=== PATIENT | male | born 1930 | race Caucasian/White ===

== ENCOUNTER 2016-10-14 20:04 | Inpatient (IN) | payer MEDICARE ==
[~2016-10-14] VITALS: Ht 172.7 cm; Wt 132.2 kg
[~2016-10-14 20:04] MED LIST: ASPI-973 PO; CLOP75TA3 PO; FURO40TA4 PO; Isosorbide Mononitrate PO; LIP40 PO; LISI-571 PO; Metoprolol Tartrate PO; OMEP-113 PO; POTA10CA42 PO; [UNRECOGNIZED DRUG - CODE] IV
[2016-10-14 20:11] VITALS: BP 110/61; PULSE 70; RESP 18; O2SAT 92
--- NOTE | 2016-10-14 21:15 | DRSVH ---
PROCEDURE: X-RAY LEFT KNEE, THREE VIEWS ([id number]) INDICATIONS: Swollen left knee, patient reports no recent trauma but he did lacerated his knee appro ximately 1 week ago and believes there could be infection associated. TECHNIQUE: 3 views of the knee were acquired. COMPARISON: None. FINDINGS: Bones: No fractures or dislocations. No suspicious bony lesions. Soft tissues: No joint effusion. No suspicious soft tissue calcifications. Soft tissue swelling ve ntrally. IMPRESSION: Bipartite patella, no osteomyelitis or foreign body seen. Swelling in the soft tissues ventral to the patella but no gas in those soft tissues is found. Dictated by: Pa Madrigal M.D. on 10/14/2016 at 21:12 Approved by: Pa Madrigal M.D. on 10/14/2016 at 21:13
--- NOTE | 2016-10-14 21:40 | ED.REPORT ---
HPI-Rash / Abscess Date of Service Oct 14, 2016 ED Provider: Lawrence Vaughn MD Patient is a 85 year old male with a history of diabetes mellitus, coronary artery disease with prior NSTEMI and CABG, sleep apnea on CPAP, prior CVA, and hypertension who presents to the ED with increasing swelling, redness, and warmth of his left knee that began 4 days ago. He reports associated tenderness of his knee. The patient states that he stepped on something last week, injuring the sole of his left foot, and that he subsequently developed purulent discharge from this wound. He did not sustain any recent trauma or injury to his knee. The patient has also reports chills and fever, with a temperature of 37.8C in the ED. He denies chest pain or shortness of breath. Nursing Notes Stated Complaint: SWOLLEN LT KNEE Chief Complaint: General Complaint Nursing Notes Reviewed: Yes Allergies: Coded Allergies: No Known Allergies (Verified , 10/14/16) Scheduled ([Metoprolol Tartrate]) 25 MG TABLET 25 MG PO BID ([Isosorbide Mononitrate]) 30 MG TABLET.ER 30 MG PO DAILY Aspirin (Aspirin) 81 Mg Tablet.dr 81 MG PO DAILY Atorvastatin (Lipitor) 40 Mg Tablet 80 MG PO DAILY Clopidogrel Bisulfate (Plavix) 75 Mg Tablet 75 MG PO DAILY Fluoxetine (Fluoxetine) 10 Mg Capsule 10 MG PO DAILY Furosemide (Furosemide) 40 Mg Tablet 40 MG PO DAILY Lisinopril (Lisinopril) 5 Mg Tablet 5 MG PO DAILY Omeprazole Magnesium (Omeprazole) 20 Mg Capsule.dr 20 MG PO DAILY Potassium Chloride (Potassium Chloride) 10 Meq Capsule.er 10 MEQ PO DAILY TAKE WITH FOOD Scheduled PRN Vancomycin (Vancomycin HCl) 1 Gm Addvial 1 GM IV DIRECTED PRN PRN Catheter associated UTI General Time Seen by MD: 21:35 Chief Complaint Red area, Tender/swollen area Hx Obtained From: Patient, Spouse Arrived By: Walk-in Onset Occurred: 4 days ago Symptom Duration: Since onset Location: : Lower extremity Quality: Painful Severity: Current: Moderate Severity: Maximum: Moderate Recent Healthcare: No recent doctor visit, No recent hospitalization Similar Sx Previous: No Past Medical History Past Medical History Coronary artery disease with prior NSTEMI and CABG Asthma prostate cancer possible CHF GERD Reports: Diabetes mellitus, Hyperlipidemia, Hypertension, Stroke (prior CVA) Past Surgical History hernia repair Reports: Appendectomy Smoking History Never Smoker Social History Alcohol Use: Denies alcohol use Drug Use: Denies drug use Other Social History: Good social support, , Local resident Review of Systems Constitutional: Reports: Chills, Fever Respiratory: Denies: Shortness of breath Cardiovascular: Denies: Chest pain Musculoskeletal: Reports: Extremity pain, Extremity swelling, Joint pain, Joint swelling Complete sys rev & neg: except as marked. Physical Exam Initial Vital Signs Vital Signs (First) Date Time Temp Pulse Resp B/P Pulse Ox O2 Delivery O2 Flow Rate FiO2 10/14/16 20:11 37.8 70 18 110/61 92 Room Air 10/14/16 23:38 2 Initial VS: Reviewed, Vital signs abnormal Neck: Supple, Full range of motion Neurologic: Alert, Oriented, Nonfocal Psychiatric: Mood/affect normal, Behavior normal, Normal thought content General/Constitutional: Awake, Alert, No acute distress Appearance / Presentation: Positive: Obese Skin: Color NL, Warm, Dry Head / Eyes: Atraumatic, Normocephalic, PERRL ENT: Airway patent, Mucous membranes moist Respiratory / Chest: Breath sounds NL, Breath sounds = bilat, No respiratory distress, No rales, No rhonchi, No wheezing Cardiovascular: Heart rate NL, Regular rhythm, Heart sounds NL, No murmurs Upper Extremity / MS: No swelling, Neurologic intact, Vascular intact Lower Extremity / Pelvis / MS: Neurologic intact, Vascular intact left knee is tender, swollen, hot, and erythematous. Leading edge marked. Small healing pustule on the arch of sole of the his left foot, no surrounding erythema or warmth. Interpretation & Diagnostics Lab Results Interpretation Result Diagram: 10/14/16213710/14/162137 Test 10/14/16 21:38 White Blood Count 10.1th/mm3 (3.8-10.1) Red Blood Count 4.56mil/mm3 (4.40-5.80) Hemoglobin 13.1g/dL (13.8-17.2) Hematocrit 42.2% (41.0-50.0) Mean Corpuscular Volume 92.5fL (81-100) Mean Corpuscular Hemoglobin 28.7pg (27.0-35.0) Mean Corpuscular Hemoglobin Concent 31.0% (32.0-37.0) Red Cell Distribution Width 13.7% (12.3-15.4) Platelet Count 220bil/L (150-400) Neutrophils (%) (Auto) 71.8% (40-74) Lymphocytes (%) (Auto) 14.9% (14-46) Monocytes (%) (Auto) 10.3% (4-12) Eosinophils (%) (Auto) 2.6% (0-5) Basophils (%) (Auto) 0.2% (0-3) Sodium Level 140mEq/L (134-144) Potassium Level 5.0mEq/L (3.5-5.2) Chloride Level 98mEq/L (97-108) Carbon Dioxide Level 28mmol/L (18-29) Blood Urea Nitrogen 22mg/dL (8-27) Creatinine 0.76mg/dL (0.76-1.27) Estimat Glomerular Filtration Rate 103mL/min (>59) Glucose Level 137mg/dL (60-99) Calcium Level 8.7mg/dL (8.5-10.1) Magnesium Level 1.8mg/dL (1.6-2.6) Total Bilirubin 0.5mg/dL (0.0-1.2) Aspartate Amino Transf (AST/SGOT) 17U/L (0-50) Alanine Aminotransferase (ALT/SGPT) 11U/L (0-44) Alkaline Phosphatase 88U/L (25-160) Total Protein 7.1g/dL (6.4-8.4) Albumin 3.6g/dL (3.4-5.0) Procalcitonin 0.05ng/mL (0.00-0.08) Lab Results Interpretation: Elevated lactic acid ECG Interpretation ECG Interpretation: Sinus or etctopic atrial rhythm, Rate 63 Supraventricular bigeminy Right bundle branch block Abnormal T, consider, ischemia, lateral leads Time: 22:58 Interpreted by: ED physician Normal ECG Interpretation: No acute ischemic changes X-Ray Chest Interpretation Chest Xray Interpretation: Impression: No acute cardiopulmonary process. View: Portable Interpretation / Wet Read by: Wet read ED physician X-Ray Interpretation Xray Interpretation: IMPRESSION: Bipartite patella, no osteomyelitis or foreign body seen. Swelling in the soft tissues ventral to the patella but no gas in those soft tissues is found Dictated by: Pa Madrigal M.D. on 10/14/2016 at 21:12 Approved by: Pa Madrigal M.D. on 10/14/2016 at 21:13 X-Ray Ordered: Knee left Interpretation / Wet Read by: Interpret - Radiologist Re-Eval/Medical Decision Med Decision/Clinical Course Left leg cellulitis with evidence of systemic sepsis symptoms. He was cultured and given vancomycin. He also had a mildly elevated d-dimer with normal EKG. He did not have any chest pain. He will be admitted to the hospitalist service. Source of Hx: Old records Re-Evaluation/Progress : Time of Eval: 23:48 Patient Status: Condition improved Re-Evaluation/Progress Note: Rechecked the patient. Discussed the results of his labs, x-rays, and EKG. Patient will be admitted to the hospital for further care. All questions were addressed. Consultation : Referral / Consult Name: Margarita Cueto DO Consulted With: Hospitalist Call Returned at: 23:52 Group Cio: Will see patient, Agrees with eval, Agrees with plan, Accepts admit Note: Spoke with Dr. Cueto, hospitalist, who agrees to accept admit. Counseled Regarding: Diagnosis, Lab results, Need for admission Discharge & Departure Impression: Primary Impression: Cellulitis of left knee Additional Impressions: Elevated troponin SIRS (systemic inflammatory response syndrome) Disposition: ADMITTED TO HOSPITAL Discharge Condition All VS Reviewed: Yes Condition: Stable Referrals: Murali Bowen MD (PCP) Yaneth Attestation Portions of this note were transcribed by Darlene Munguia. I, Dr. Vaughn personally performed the history, physical exam and medical decision-making; I reviewed and confirmed the accuracy of the information in the transcribed note. Signed by: Yaneth Lacey, 10/15/2016 0000 copies to: Murali Bowen MD, Howard L MD Oct 14, 2016 21:40 Darlene Munguia Oct 14, 2016 21:53
[2016-10-14 21:45] LABS: BASOPHILS % (AUTO) 0.2 % (0-3); EOSINOPHILS % (AUTO) 2.6 % (0-5); MONOCYTES % (AUTO) 10.3 % (4-12); Mean Corpuscular Hemoglobin 28.7 pg (27.0-35.0); Mean Corpuscular Volume 92.5 fL (81-100); NEUTROPHILS % (AUTO) 71.8 % (40-74); Platelet Count 220 bil/L (150-400)
[2016-10-14] MEDS ORDERED: Vancomycin Inj 1,500 MG in 0.9% Sodium Chloride 500 ML IV ONE (22:00)
[2016-10-14 22:07] LABS: TROPONIN T 0.014 ug/L (0.0-0.011)
[2016-10-14 22:18] LABS: Magnesium 1.8 mg/dL (1.6-2.6)
[2016-10-14 22:36] VITALS: BP 125/51; PULSE 67; RESP 23; O2SAT 94
[2016-10-14 23:38] VITALS: BP 97/41; PULSE 66; RESP 21; O2SAT 92
[2016-10-15] VITALS (10 sets, daily range): BP systolic 98–139; BP diastolic 39–63; PULSE 57–72; RESP 17–22; O2SAT 91–96
[2016-10-15] MEDS ORDERED: Alum-Mag Hydrox-Simeth 30 mL Suspension PO PRN (01:20)
[2016-10-15] MEDS ORDERED: Polyethylene Glycol (PEG) 17 Gm Powder PO PRN (01:20)
[2016-10-15] MEDS ORDERED: Ondansetron 2 mg/mL 2 mL Inj IVPUSH PRN (01:20)
[2016-10-15] MEDS ORDERED: Piperacillin-Tazo 3.375 Gm Inj 3.375 GM in Dextrose 5% Minibag Plus 50 ML IV ONE (01:20)
[2016-10-15] MEDS ORDERED: FLUO10CA20 PO (02:39)
--- NOTE | 2016-10-15 06:17 | PCM.HPMED ---
Subjective Date of Service Oct 15, 2016 Primary Provider: Admitting Physician: Margarita Cueto DO Primary Care Physician: Murali Bowen MD Attending Physician: Margarita Cueto DO Chief Complaint: Left knee swelling and pain History of Present Illness: Patient is an 85-year-old male with type 2 diabetes mellitus, CAD s/p CABG, prior CVA with residual left lower extremity weakness presenting with left lower extremity swelling and erythema. The patient is a vague historian. He is accompanied by his family at bedside at time of visit. The patient reports initially noticing a small "split skin" on his left about 2 weeks ago. Patient does not recall any precipitating event or trauma to his knee. There was no associated drainage or bleeding from the site and he states the knee subsequently became more swollen and red but he refused medical care. Today (10/14) the patient noticed his knee was more red, swollen and warm. Patient's eventually convinced him to go to the ED for further evaluation. At time of visit, the patient reports his pain is one out of 10 on the pain scale. Patient denies fever, chills, nausea, emesis, chest pain, shortness of breath. In the ED, vitals: temp 37.8, HR 70, RR 18 - satting 92% on room air, BP 110/ 61. Notable labs: lactic acid 2.4 Review of Systems: A comprehensive review of systems was conducted with the patient and found to be negative except as above in the History of Present Illness. Allergies Coded Allergies: No Known Allergies (Verified , 10/14/16) Home Medications Metoprolol 25mg BID Isosorbide Mononitrate ER 30mg daily Plavix 75mg daily KCl ER 10mEq daily Omeprazole 20mg daily Fluoxetine 10mg daily Lasix 40mg daily Lisinopril 5mg daily Atorvastatin 80mg daily ASA 81mg daily PMH Type 2 diabetes mellitus CAD s/p CABG MARIBELL History of CVA with residual left lower extremity weakness and imbalance Hypertension GERD . Surgical History Hernia repair Appendectomy CABG Cataracts . 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 Mumbled and garbled speech. HEENT: Normocephalic, atraumatic. External ears without defect. Pupils equal, round, and reactive to light. Excessive lacrimation (left > right). Oropharynx free of erythema and cobble stoning with moist mucosa. Neck: Supple. No lymphadenopathy or thyromegaly. Cardiovascular: Distant heart sounds. Regular rate and rhythm with occasional ectopy. Soft systolic murmur. Pulmonary: Clear to auscultation bilaterally with no crackles, wheezes, or rhonchi. Normal respiratory effort with no use of accessory muscles. Speaks in 4 -5 words sentences. Abdomen: Bowel tones present. Soft, nontender, nondistended. Extremities: Left knee with erythema, warmth and swelling. Area of erythema is demarcated. Skin: Vesicular rash on flanks bilaterally. Upper extremity with multiple scabbed pustules. Neurological: Cranial nerves grossly intact. Psychiatric: Normal mood and affect. Alert and oriented to person, place, and time. Lab and Diagnostics Result Diagram: 10/14/16213710/14/162137 X-Rays, CTs and MRIs Date of Service: 10/14/162019 PROCEDURE: X-RAY LEFT KNEE, THREE VIEWS ([id number]) INDICATIONS: Swollen left knee, patient reports no recent trauma but he did lacerated his knee approximately 1 week ago and believes there could be infection associated. TECHNIQUE: 3 views of the knee were acquired. COMPARISON: None. FINDINGS: Bones: No fractures or dislocations. No suspicious bony lesions. Soft tissues: No joint effusion. No suspicious soft tissue calcifications. Soft tissue swelling ventrally. IMPRESSION: Bipartite patella, no osteomyelitis or foreign body seen. Swelling in the soft tissues ventral to the patella but no gas in those soft tissues is found. Dictated by: Pa Madrigal M.D. on 10/14/2016 at 21:12 Approved by: Pa Madrigal M.D. on 10/14/2016 at 21:13 Assessment & Plan Patient is an 85-year-old male with type 2 diabetes mellitus, CAD s/p CABG, prior CVA with residual left lower extremity weakness presenting with left lower extremity swelling and erythema and admitted for cellulitis. 1. Acute left knee cellulitis. Present on admission. Active -Left knee with erythema and swelling, possibly from strep -Knee x-ray shows swelling in the soft tissues ventral to the patella but no gas in those soft tissues is found -Antibiotics Zosyn and vancomycin. De-escalate with further lab results and cultures -Pending studies: MRSA screen, ASO titer, streptozyme 2. Vesicular rash. Present on admission. Active -Located on flank bilaterally -Possibly disseminated zoster -Contact isolation -VZV PCR pending -Consider acyclovir and ID consult 3. CAD s/p CABG. Present on admission. Active -Continue home atorvastatin, Plavix, ASA, metoprolol 4. Type 2 diabetes mellitus, chronic. Present on admission. Active -No home antiglycemic agents -HbA1c pending 5. MARIBELL, chronic. Present on admission. Active -Has CPAP at home but hasn't used in about one month 6. Hypertension, chronic. Present on admission. -Continue metoprolol, lisinopril, Lasix 7. GERD, chronic. Present on admission. -Continue home PPI 8. History of CVA -Continue ASA, Plavix Patient Status: Patient is admitted under inpatient status with expected length of stay greater than 2 midnights due to severity of presenting symptoms, risk of adverse event, and complexity of treatment plan. VTE Prophylaxis: Sub-Q Heparin (Unfractionated) Resuscitation Status: DNR/DNI:Do Not Resuscitate/Intubate Attending Statement The patient was seen and examined together with house staff on 10/15/2016 and I agree with the history, exam and plan as outlined in the note above. Ivan Michele DO Oct 15, 2016 01:26 Margarita Cueto DO Oct 15, 2016 06:34
--- NOTE | 2016-10-15 06:27 | NUR ---
ADMIT Patient presents with mumbled speech, oriented and appropriate in response. Denies pain. History of MARIBELL with CPAP at home that patient reports he does not wear. Placed on [employer] as he clearly has apneic episodes while sleeping. Somewhat confused when waking, clears after re-orientation. L knee red and swollen. Noted Left eye with yellow discharge and reddened, MD made aware. Placed on contact precautions. Currently resting comfortably in bed.
[2016-10-15] MEDS ORDERED: OMEP20TA24 PO (07:36)
[2016-10-15] MEDS ORDERED: OMEP20CA11 PO (07:46)
--- NOTE | 2016-10-15 07:47 | NUR ---
Med Rec: Med rec completed from medication bottles provided by family member, family member stated would take bottles home with her.
[2016-10-15] MEDS ORDERED: Vancomycin Dose per Pharmacist XX ONE (08:30)
[2016-10-15] MEDS ORDERED: Vancomycin Dose per Pharmacist XX SCH (08:30)
--- NOTE | 2016-10-15 08:59 | DRSVH ---
PROCEDURE: X-RAY CHEST ONE VIEW, PORTABLE ([id number]) INDICATIONS: chest pain TECHNIQUE: One view of the chest was acquired. COMPARISON: [facility], , CHEST 1VW (PORTABLE), 01/04/2015, 11:10. FINDINGS: Surgical changes and devices: Post median sternotomy and fractured proximal sternal wire redemonstrat ed. Lungs and pleura: No pleural effusions or pneumothorax. Lungs are clear. Mediastinum: Mediastinal contours appear normal. Heart size is normal. Bones and chest wall: No suspicious bony lesions. Overlying soft tissues appear unremarkable. IMPRESSION: No acute cardiopulmonary disease. Dictated by: Luis Jordan Burt Interpreted: Mary Stanford MD on 10/15/2016 at 8:59 Transcribed by: CHAVEZ on 10/15/2016 at 8:59 Approved by: Mary Stanford M.D. on 10/15/2016 at 19:02
--- NOTE | 2016-10-15 10:51 | NUR ---
Evaluation completed. Please go to "Notes" then click on "Assessments and Notes" (bottom left corner of screen). Then select appropriate discipline tab on top of screen.
[2016-10-15] MEDS: 0.9% Sodium Chloride 1,000 ML IV SCH ×2 (11:12→23:08)
[2016-10-15] MEDS: Heparin 5,000 Unit/mL Inj SUBQ SCH ×3 (11:13→23:50)
[2016-10-15] MEDS: Pantoprazole 40 mg ER24 Tablet PO SCH (11:14)
[2016-10-15] MEDS: Isosorbide Mononitrate 30 mg ER24 Tablet PO SCH (11:14)
[2016-10-15] MEDS: Piper-Tazo 3.375 Gm/50 mL D5W Minibag Plus - Q8H over 4 hrs IV SCH ×4 (11:22→18:13)
--- NOTE | 2016-10-15 13:26 | PCM.CONPHA ---
Subjective Left knee swelling and pain Reason for Pharmacy Consult: Vancomycin Dosing Assessment/Plan Assessment/Plan Pharmacy Kinetic Dosing Vancomycin Indication: SIRS, left knee cellulitis Vanc goal trough: 10-15 mcg/mL Pt wt: 120.7 kg Other ABX: Zosyn (DM2 hx) SCr: 0.76 WBC: 10.1 Cultures: blood pending Assessment/Plan: - Loading dose of vancomycin 1,500 mg given in ED -Will schedule vancomycin 1250 mg Q12H based on ~ 10 mg/kg. -Will schedule trough to be drawn on 10/17/16 @1300. Pharmacy appreciates consult and will continue to monitor. Thanks, Ede Nguyen, PharmD Ede Nguyen Oct 15, 2016 13:26
[2016-10-15] MEDS ORDERED: Vancomycin Inj 1,250 MG in 0.9% Sodium Chloride 250 ML IV SCH (13:30)
--- NOTE | 2016-10-15 15:25 | NUR ---
spiritual care: pt request caring visit. pt's Joan, vietnamese speaking awaiting news, apprehensive as she is worried about pt's condition and not understanding everything. pt sleeping.
--- NOTE | 2016-10-15 18:28 | NUR ---
Mentation/02 Assumed care of pt at 0930 this morning. Pt drowsy, frequently falling asleep in middle of a sentence. CPOX in place, pt on 2L via NC. Pt tends to desat in middle of eating/drinking. On puree/NTL, enc to take breaks to prevent desat. Later in shift, pt awake and talking, making jokes and teasing staff. Per family in room, pt confused. He was unsure of AM vs PM, req breakfast for dinner, etc. Pt does not remember a family member visiting earlier today. Currently resting, visiting with family.
--- NOTE | 2016-10-15 20:27 | CONS ---
[address] [address] CONSULTATION REPORT PATIENT: REGGIE ESPINOZA : 1930 MR#: [id number] ADMIT: 10/15/2016 JOB ID: [id number] DATE OF SERVICE: 10/15/2016 INFECTIOUS DISEASE CONSULTATION: I thank Dr. Oro for this timely consult. REASON FOR CONSULTATION: Left lower extremity cellulitis with possible disseminated zoster. 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 He has underlying problems including type 2 diabetes, coronary artery disease, and a history of CVA with some left-sided weakness. Despite that, he says he is able to get around a fair amount and he is definitely able to walk with a walker at home. He reports that he got a small cut or split just over his left knee a couple weeks ago. He thinks maybe that he had bumped it or there was some minor trauma to the knee. In any event the knee gradually started to swell and about a week ago it became quite red and tender. It started to feel warm to the patient and his strongly recommended he come to the ER, but the patient kept declining. Finally his talked him into it because his knee was really becoming more progressively swollen, tender, and very red. He did not have much in the way of symptoms associated with this, and states he was even able to continue to walk, though with a little bit more difficulty, and he did not have any fevers, chills, sweats, nausea, vomiting, diarrhea, or new onset pulmonary symptoms. In the ED he was found to have a low-grade fever, with a minimally elevated lactic acidosis. Because of that the patient was admitted for the treatment of what appeared to be a fairly severe left lower extremity cellulitis centered around the knee. There were also concerns that he had some vesicular lesions scattered across his abdomen and flanks bilaterally, and that this could represent zoster. The patient really does not know anything about the history the rash but his stepson who was in the room with him tonight says that he has had numerous of these red bumps come up on his arms and torso and that they were really at their worst about six weeks ago and have actually faded quite a bit. PAST MEDICAL HISTORY: 1. Type 2 diabetes. 2. History of CVA with residual left-sided weakness. 3. Coronary artery disease status post CABG. 4. Obstructive sleep apnea. 5. Hypertension. 6. Cataracts. 7. History of appendectomy. SOCIAL HISTORY: The patient is a former plant pathologies. 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 He is now retired in this area with his . He is a nonsmoker, nondrinker, and has not lived overseas, nor did he when he served in the [employer] , nor did he have any overseas travel at any time. FAMILY HISTORY: Positive for an absence of tuberculosis. His mother from an intracranial hemorrhage. His father from cardiac disease. REVIEW OF SYSTEMS: Was done. The patient is a bit of a vague historian but he was clear on some details and tells me he has not had any significant headache. He notes his vision has diminished over the years but it is not acutely worse. He has no sore throat or trouble swallowing. He denies significant cough, shortness of breath or chest pain. He has had no particular new or different problems with his back. He has noted the scattered skin lesions that have been of concern but that did not bother him much. These skin lesions are not itchy and not tender and they seem to come and go. He has had no nausea vomiting or diarrhea. No dysuria or other urinary symptoms. He has some chronic weakness in his left leg secondary to his old stroke and over the past week or two he has had a rapidly progressing redness and tenderness over the left knee. He states his legs are still strong, even though he does require a walker to get around because he has some balance issues at times. The remainder of the review of systems is negative. PHYSICAL EXAMINATION: Reveals an afebrile gentleman, temperature 36.9, pulse 72, respiratory rate 22, blood pressure 100/48. He is saturating 92% on 2 L. Examination of the head reveals no acute trauma. His eyes are notable for bilateral hemorrhagic conjunctivitis. No scleral icterus is seen. Nose is normal. Oral cavity with fair dentition. No thrush or hairy leukoplakia noted. No evidence for pharyngitis. The neck is quite supple, without adenopathy or notable JVD. With the stepson's help we were able to get the patient sitting up. His entire back is erythematous because he has been lying in 1 position and perhaps sweating a bit but I do not see any focal lesions consistent with zoster. His back is nontender down the spine. His lungs are fairly clear bilaterally. Cardiac tones regular rate and rhythm. No notable murmurs. The abdomen is obese, soft, and nontender. The patient is not does not have a Vasquez catheter. There is no suprapubic fullness. There are some scattered erythematous blanchable lesions on his upper extremities as well as scattered around his flank, but these are not vesicular and do not have the appearance of zoster. His lower extremities are notable for an absence of edema. There is no significant venous stasis change noted. He has got excellent strength in his lower extremities bilaterally and I was unable to detect any real weakness in his left leg, though I did not stand the patient up. His left knee and the area medially above and below is notable for an erythematous, warm, and slightly tender area of cellulitis. There are no vesicles or bullae present there and the patient does have limited range of motion of the left knee as he does with the right suggesting this is not septic arthritis. LABORATORIES: Include white blood count 10,100, platelet count 220,000. Lactic acid is 1.9. Procalcitonin 0.05. Serologies include pending streptozyme, pending RAFAT, anti-DNase B, and pending VZV PCR on scan. Blood cultures are pending and are negative. Chest x-ray normal. Knee x-ray on the left side shows no osteo or foreign body. There is some swelling in the soft tissues above the knee but no gas is seen. IMPRESSION: This patient does not appear to have any zoster, disseminated her otherwise. His skin lesions look more like evidence of folliculitis and the son's the elenaon's story is of them coming and going but being worse actually six weeks ago than they are now, which would be quite inconsistent with disseminated zoster. I do not believe the patient needs to be in isolation. The patient's knee though it is a classic cellulitis and is likely due to strep judging by the appearance of it. The possibility that staph might be involved in this knee process cannot be excluded either. I note that the patient has been started on vancomycin and Zosyn. This is quite a nephrotoxic regimen which I would not prefer in a man who is just about to turn 86 years old. Will drop out the vancomycin and substitute another antibiotic while we await our culture and serology data and then dramatically narrow his antibiotics. Unfortunately we cannot use linezolid, which would be a very simple drug to use here, because the computer warns me about a possible SSRI drug interaction, although I do not actually see what that drug is, but perhaps it is one of his home meds. RECOMMENDATIONS: 1. We await the blood cultures and ASO titer which are pending. 2. MRSA screen of the nares will be ordered. 3. Will discontinue the vancomycin and substitute daptomycin. 4. I am aware there is an interaction between daptomycin and atorvastatin, but I think it is reasonable to overlap a little bit until we get back the results of our MRSA screen and ASO titers, and probably we can dramatically narrow antibiotics at that point. 5. Isolation will be discontinued.
[2016-10-15] MEDS: DAPTOmycin Inj 750 MG in 0.9% Sodium Chloride 50 ML IV SCH (23:10)
[2016-10-16] VITALS (26 sets, daily range): BP systolic 72–228; BP diastolic 36–112; PULSE 52–91; RESP 8–22; O2SAT 84–99
[2016-10-16] MEDS ORDERED: Acetaminophen IV 1,000 MG in IV Premix 1 EACH IV ONE (01:05)
--- NOTE | 2016-10-16 01:49 | NUR ---
Rigor, Febrile: Pt/ called staff to room as pt began "shaking". Rigors noted upon entering pt's room, audible wheezes, temp was found to be 38.2 C. Blood sugar was check at 132. Just prior to this onset, pt was awake and joking/laughing with RN. PO Tylenol was given and charge nurse notified. Pt then suddenly became nauseated with emesis; pallor in color, limited answers to questions. Rapid response was called. MDs to room and ordered IV Tylenol and blood cultures; CXR in the morning. IV Tylenol was administered, Zofran for nausea. in room with pt. Urine obtained and sent to lab. Continue to monitor.
[2016-10-16] MEDS: Piper-Tazo 3.375 Gm/50 mL D5W Minibag Plus - Q8H over 4 hrs IV SCH ×8 (02:17→23:30)
[2016-10-16 02:45] LABS: APPEARANCE,URINE CLEAR (CLEAR,HAZY); COLOR,URINE YELLOW (YELLOW); OCCULT BLOOD,URINE TRACE (NEGATIVE); PH,URINE 5.5 (5.0-8.0); UROBILINOGEN,URINE NORMAL (NORMAL)
[2016-10-16] MEDS: 0.9% Sodium Chloride 1,000 ML IV SCH ×3 (06:27→23:29)
[2016-10-16] MEDS: Isosorbide Mononitrate 30 mg ER24 Tablet PO SCH (08:29)
[2016-10-16] MEDS: Pantoprazole 40 mg ER24 Tablet PO SCH (08:29)
[2016-10-16] MEDS: Heparin 5,000 Unit/mL Inj SUBQ SCH ×2 (08:32→16:30)
--- NOTE | 2016-10-16 08:38 | NUR ---
Temp Pt oral temp this AM 102.2. paged.
--- NOTE | 2016-10-16 09:55 | DRSVH ---
PROCEDURE: X-RAY CHEST ONE VIEW, PORTABLE ([id number]) INDICATIONS: SHORT OF BREATH TECHNIQUE: One view of the chest was acquired. COMPARISON: [facility], , CHEST 1VW (PORTABLE), 06/07/2014, 19:50. FINDINGS: Surgical changes and devices: Median sternotomy and fractured proximal sternal wire redemonstrated. Lungs and pleura: No pleural effusions or pneumothorax. Lungs are clear. Mediastinum: Mediastinal contours appear normal. Heart size is normal. Bones and chest wall: No suspicious bony lesions. Overlying soft tissues appear unremarkable. IMPRESSION: No acute cardiopulmonary disease. Dictated by: Luis Jordan RR Interpreted: Shirley Kauffman MD on 10/16/2016 at 9:54 Transcribed by: ODILIA on 10/16/2016 at 9:55 Approved by: Shirley Kauffman MD, PhD on 10/16/2016 at 17:07
[2016-10-16] MEDS: DAPTOmycin Inj 750 MG in 0.9% Sodium Chloride 50 ML IV SCH (10:09)
--- NOTE | 2016-10-16 10:12 | NUR ---
Change in mentation Patient's spouse at bedsides states patient having increased confusion and increased sputum in throat/chest. Patient is alert and oriented to self. Very slow to respond to questions and often just stares at person without answering. Auditory wheezes heard, more so in upper right chest anterior. Denies pain. Febrile. Diaphoretic. See VSS. MD notified. Orders received for stat ABG, CBC, lactic acid and mag.
--- NOTE | 2016-10-16 10:15 | ABG ---
DateTimeAnalyzed 10:08:00 -_ pH ____7.365 - 7.350 7.450 pCO2 ___49.6__ -mmHg 35.0 45.0 pO2 ___74.0__ -mmHg 69.0 116 HCO3- ___27.7__ -mmol/L 22.0 26.0 ABE ____2.2__ -mmol/L -2.0 2.0 tHb ___11.2__ -g/dL O2Hb ___92.7__ -% COHb ____1.6__ -% MetHb ____0.9__ -% sO2 ___95.1__ -% 25.0 FIO2 ___21.0__ -% Drawn By lw - Date/Time Notified____ 10:14:00 -_ Liter_Flow ____4.0__ -L/min Oxygen Device 1 NC - Notified By lw - Notified Whom ___Dr. Taleghani - B 755 -mmHg tO2 ___14.7__ -Vol% Benigno test _Positive -
--- NOTE | 2016-10-16 10:26 | NUR ---
Assumed Care This nurse assumed care about 1026. Report received from JACQUIE GLASER. Care continues.
--- NOTE | 2016-10-16 10:31 | NUR ---
Transfer of care Pt upgraded to PCC status, report given to JACQUIE López.
--- NOTE | 2016-10-16 11:20 | PROG NOTE ---
[address] [address] PROGRESS NOTE PATIENT: REGGIE ESPINOZA : 1930 MR#: [id number] ADMIT: 10/15/2016 JOB ID: [id number] DATE: 10/16/2016 INFECTIOUS DISEASE FOLLOWUP NOTE: REASON FOR FOLLOWUP: Severe left lower extremity cellulitis. INTERVAL HISTORY: Overnight, the patient reports he has had fever and chills. He is states he is unsure as to whether or not he is short of breath or having a cough. He denies abdominal pain, nausea, or vomiting. He does have minimal pain around his left knee which he says does not bother him very much even though it looks bad. PHYSICAL EXAMINATION: Reveals an elderly, quite ill-appearing gentleman sitting up in his hospital bed. He spiked to 39 degrees just a couple of hours ago. Current pulse 83, respiratory rate 22, blood pressure 138/72, saturating well on 2 L. Examination of the mental status reveals he is reasonably clear this morning. His oral cavity is negative. His lungs have poor inspiratory effort but relatively clear. Cardiac tones: Regular rate and rhythm. His abdomen is obese, soft and nontender. His left knee is no change from yesterday. There is diffuse erythema over the patella which extends several cm up and down but without bullae and without much restriction of motion of the knee itself. LABORATORIES: Include a white count of 10,000 from two days ago, and that has not been repeated, interestingly. His hemoglobin A1c is 7. LFT normal. Procalcitonin on admission was 0.05. Urinalysis without pyuria. Streptozyme has come back negative. Anti-DNase B is pending, as is a VZV PCR. His blood cultures x4 sets are negative, and I do not think we need any more. A MRSA screen is pending and will be available later tonight. IMAGING: His chest x-ray from today is basically clear. IMPRESSION: This patient is having continued high fevers, and some mild systemic toxicity due to what appears to be fairly severe cellulitis involving the area around the left knee. This is most likely streptococcus and certainly could be group A or group B streptococcus. Because of concerns about vancomycin renal toxicity yesterday, I switched the patient to daptomycin and he is currently receiving daptomycin with Zosyn while we await our methicillin-resistant Staphylococcus aureus screen. I recognize he is on atorvastatin. There may be a drug interaction there but we could not use linezolid because of other drug interactions and vancomycin, I think, would be unwise in an elderly and fragilely compensated man like this. RECOMMENDATIONS: 1. We await the blood cultures and additional serologies which are pending. 2. We await the MRSA screen. 3. Will continue with daptomycin and Zosyn at least overnight. 4. Will continue to watch this patient closely with you. 5. This case discussed with the bedside Nursing team.
[2016-10-16 11:27] LABS: Mean Corpuscular Volume 92.9 fL (81-100)
[2016-10-16 12:00] LABS: Magnesium 1.7 mg/dL (1.6-2.6)
[2016-10-16] MEDS: Acetaminophen IV 1,000 MG in IV Premix 1 EACH IV PRN ×2 (12:14→20:58)
--- NOTE | 2016-10-16 15:25 | ABG ---
DateTimeAnalyzed 15:19:00 -_ pH ____7.320 - 7.350 7.450 pCO2 ___57.1__ -mmHg 35.0 45.0 pO2 ___66.5__ -mmHg 69.0 116 HCO3- ___28.6__ -mmol/L 22.0 26.0 ABE ____2.1__ -mmol/L -2.0 2.0 tHb ___10.7__ -g/dL O2Hb ___90.4__ -% COHb ____1.4__ -% MetHb ____1.1__ -% sO2 ___92.7__ -% 25.0 FIO2 ___48.0__ -% Drawn By GJ - Date/Time Notified____ 15:25:00 -_ Liter_Flow ____7.0__ -L/min Oxygen Device 1 NASAL CPAP - Notified By GJ - Notified Whom TALEGHANI - B 751 -mmHg tO2 ___13.7__ -Vol% Benigno test _Positive -
--- NOTE | 2016-10-16 15:44 | PCM.PNMED ---
Subjective Date of Service Oct 16, 2016 Subjective denied any discomfort or new issues this am but this afternoon minimally responsive with nursing noting patient with period of apnea prompting rapid response call Exam Vital Signs Vital Sign - Last Date Time Temp Pulse Resp B/P Pulse Ox O2 Delivery O2 Flow Rate FiO2 10/16/16 15:16 54 8 80/46 92 CPAP 10/16/16 14:55 37.0 8.00 Intake and Output 10/15/16 10/15/16 10/16/16 Cumulative From/Thru 15:00 23:00 07:00 10/14/16 20:11 - 10/16/16 06:43 Intake Total 454 ml 1276 ml 4024 ml Output Total 300 ml 300 ml Balance 454 ml 976 ml 3724 ml Intake Oral 454 ml 0 ml 454 ml IV Total 1276 ml 3570 ml Output Urine Total 200 ml 200 ml Emesis 100 ml 100 ml # Voids 2 2 # Bowel Movements 0 0 Exam was alert this am but currently very lethargic and non-verbal. After initiating BiPAP and running NS bolus he does open his eyes to sternal rub and seems to be able to follow command (asked him to look to the side and he did). General: No Acute Distress Head: Normal Eyes: PERRLA, Scleral Anicteric Nose: Mucous Membr Moist/[place] Mouth: Mucous Membr Moist/[place] Chest & Lungs: Chest Wall Normal, Clear to auscultation & percussion Cardiovascular: Regular Rate/Rhythm Abdomen: Non-tender, Non-distended, Normoactive bowel tones, Soft Extremities: No cyanosis/clubbing/edma bilat Neurological: Other (lethargic as noted above) IVs and Medications Medications Reviewed: Medications were reviewed in detail Lab and Diagnostics Result Diagram: 10/16/16 1119 10/16/161118 X-Rays, CTs and MRIs Date of Service: 10/14/162019 PROCEDURE: X-RAY LEFT KNEE, THREE VIEWS ([id number]) IMPRESSION: Bipartite patella, no osteomyelitis or foreign body seen. Swelling in the soft tissues ventral to the patella but no gas in those soft tissues is found. Dictated by: Pa Madrigal M.D. on 10/14/2016 at 21:12 Approved by: Pa Madrigal M.D. on 10/14/2016 at 21:13 Date of Service: 10/16/16 0700 PROCEDURE: X-RAY CHEST ONE VIEW, PORTABLE ([id number]) IMPRESSION: No acute cardiopulmonary disease. Dictated by: Luis Jordan RRA Interpreted: Shirley Kauffman MD on 10/16/2016 at 9 :54 Transcribed by: ODILIA on 10/16/2016 at 9:55 12-lead ECG SR. no significant ST elevation / depression Assessment & Plan 85-year-old male with type 2 diabetes mellitus, CAD s/p CABG, prior CVA with residual left lower extremity weakness presenting with left lower extremity swelling and erythema and admitted for cellulitis. # Acute sepsis (fever, hypotension, altered mental status, FREDERICK) with source of infection left knee cellulitis - continue with aggressive IVF resuscitation for at least 2L. If not responding to IVF will initiate pressors - c/w Abx as noted below - Hold BP meds (not tachycardic likely due to receiving metoprolol earlier this am) - power PICC placement for possible need of initiating pressors # Acute hypoventilation and acute hypoxic respiratory failure. not poa. - likely due to acute sepsis as noted above - ABG on CPAP showin.32, 57, 66, 28.6 - start BiPAP - pt documented to be DNR/DNI. will try to verify with patient's (who is not sure) and his daughter who is on the way # Acute left knee cellulitis. Present on admission. Active - appreciate ID consult. will f/u w/ recs - c/w IV Zosyn and Daptomycin (day 2) - f/u pending cultures as well as MRSA screen # Vesicular rash reported on admission not appreciated after admission - no evidence of zoster at this time - f/u # CAD s/p CABG. Present on admission. Active - Continue home atorvastatin, Plavix, ASA - hold BP meds as noted # Type 2 diabetes mellitus, chronic. Present on admission. Active - No home anti-glycemic agents - HbA1c 7 - ISS # MARIBELL, chronic. Present on admission. Active - Has CPAP at home but hasn't used in about one month - BiPAP for now as noted above # Hypertension, chronic. Present on admission. Currently septic and hypotensive - Fluid bolus as noted above - hold BP meds - pressors if he doesn't respond # GERD, chronic. Present on admission. - Continue PPI # History of CVA - Continue ASA, Plavix Dispo: Transfer to CCU for continued BiPAP and possible start of pressors. VTE Prophylaxis: Sub-Q Heparin (Unfractionated) Resuscitation Status: DNR/DNI:Do Not Resuscitate/Intubate Time spent 65 min total including 30 min of critical care so far Anton Oro Oct 16, 2016 15:44
--- NOTE | 2016-10-16 15:53 | NUR ---
Social Work: Brief Note Data: Pt is an 85 y/o male admitted for cellulitis left knee, SIRS, elevated tropo. Pt's PCP is Dr Bowen, pt's insurance is Medicare with AARP supp. Readmit score is 3, high. EMR reviewed. [employer] SALES MANAGER attempted to meet with pt, but pt just had a rapid response team in the room. [employer] MANAGER will attempt initial assessment at a later time. [employer] MANAGER will continue to follow. Assessment: Pt who is independent at baseline. Plan: [employer] SAL[employer] MANAGER will follow up to attempt initial assessment at a later time. LIVIA Bolanos
--- NOTE | 2016-10-16 17:40 | NUR ---
Rapid Response, Transfer to CCU 0836 - Blood pressure 138/72, pulse 90 1026 - Assumed care of the patient and was told he was febrile post 650 mg of Tylenol PO. Per report he had declined mentally since last night. He was groggy, but arousable. Definitely confused about place and time. He had generalized edema. 1130 - Temperature was 37.8 C. Called pharmacy to get Tylenol IV. 1214 - IV Tylenol arrived and was given. 1300 - Blood pressure was found to be 74/38 both with automatic and manual BPs. Sinus rhythm 63. Notified the charge and a clinical educator who came to assess and assist with care. Notified Dr. Oro who ordered a 1000 mls normal saline bolus. A stat lactic acid was redrawn. Around 7615-4211 - His blood pressure was still low 80s/30s, sinus rhythm 60s, temperature 37.0 C. It was noted his O2 saturation was dropping into the 80s. At this point he was had already been placed on his home CPAP machine. Respiratory therapy was called and they hooked O2 up to his CPAP. They called shortly after saying he was barely breathing. Went in the room and noted shallow breaths averaging about 6-8/min. He was not responding well and had to be shaken and patted firmly on the chest to take deeper breaths. A rapid response was called. More fluid boluses were ordered (total of three) until he could be transferred to CCU. Bipap was placed on him which greatly improved his O2 saturation and mentation. His blood pressure jacquelyn slightly to 90s/40s. Called the Corner Brace Block Machine Operator and his telemetry was sinus rhythm 60s with an IVCD and widening QRS. A stat EKG was obtained. was at the beside, but staff had difficulty getting a hold of his daughter who is the DPOA. Multiple messages were left on her phone by staff and the 's family. The boilermaker welder ( is Ecuadorean speaking only) and batting machine operator insulation were at the bedside attending to the . 1620 - He was transferred from [facility] to CCU 2018 at 1620. Report given to Edwige Delarosa RN in CCU.
--- NOTE | 2016-10-16 17:55 | NUR ---
spiritual care: code response with safety administrator, supportive care for family, gathering as pt moved to ccu and assistance contacting other family per pt's request.
[2016-10-16] MEDS ORDERED: Sodium Chloride LOK Flush 10 mL Syringe IVFLUSH PRN ×2 (18:35)
--- NOTE | 2016-10-16 18:47 | NUR ---
RESPIRATORY STATUS/HEMODYNAMICS Rapid response called to patient's room on [facility], he was quickly transferred into CCU, room 2018. Patient required BIPAP at 50% FiO2, 18/10, back-up rate of 16. He is tolerating BIPAP well, SpO2 97%. Upon arrival to CCU, third liter of NS infusing, BP quickly stabilized. Fluids to continue at a rate of 100 mL/hr. Patient remains somnolent, but does respond to repeated stimuli. Will continue to monitor.
--- NOTE | 2016-10-16 21:01 | NUR ---
1800 zosyn ABX not given. [facility] unable to locate ABX, pharmacy called by day RN and ABX never arrived...
--- NOTE | 2016-10-16 21:04 | DRSVH ---
PROCEDURE: X-RAY PICC LINE PLACEMENT BY NURSE ([id number]) INDICATIONS: Power PICC COMPARISON: None. FINDINGS: PICC was placed by the intravenous therapy team from the right side. Fluoroscopic spot fi lm demonstrates tip of PICC in the distal SVC. IMPRESSION: Tip of PICC lies within the distal SVC. Dictated by: Shirley Kauffman MD, PhD on 10/16/2016 at 21:02 Approved by: Shirley Kauffman MD, PhD on 10/16/2016 at 21:03
[2016-10-17] VITALS (14 sets, daily range): BP systolic 114–152; BP diastolic 48–121; PULSE 55–74; RESP 14–32; O2SAT 97–100
[2016-10-17] MEDS: Heparin 5,000 Unit/mL Inj SUBQ SCH ×3 (01:50→18:27)
[2016-10-17] MEDS: 0.9% Sodium Chloride 1,000 ML IV SCH ×4 (01:50→18:28)
[2016-10-17] MEDS: Piper-Tazo 3.375 Gm/50 mL D5W Minibag Plus - Q8H over 4 hrs IV SCH ×2 (05:05)
--- NOTE | 2016-10-17 06:14 | NUR ---
P: hypotension I: IVF boluses E: After a total of 5.5 L of NS pt's MAP staying > 65. Dr Jiménez preferring IVFs over pressors. Incontinent of urine x 3. Used urinal x 1, shelby urine. Tele SR/SB, 1st AVB, IVCD. Bipap at 50%, sats in the high 90s. RR in the teens. Tolerating bipapa. Awaken x 2. Alert, oriented to self only. Denies dyspnea, pain, N/V. Pleasant and cooperative. Able to follow cues.
--- NOTE | 2016-10-17 08:22 | PROG NOTE ---
[address] [address] PROGRESS NOTE PATIENT: REGGIE ESPINOZA : 1930 MR#: [id number] ADMIT: 10/15/2016 JOB ID: [id number] DATE: 10/17/2016 INFECTIOUS DISEASE FOLLOW UP NOTE: REASON FOR FOLLOW UP: Severe left lower extremity cellulitis. INTERVAL HISTORY: Overnight, the patient had a period of hypotension and respiratory failure with associated somnolence which led to his transfer to the ICU. The patient was given a fluid bolus for his hypotension and his blood pressure promptly responded. No vasopressor agents were needed. He was also placed on a BiPAP mask which led to improved oxygenation and a return to normal mental status. This morning I find the patient in his ICU bed comfortable with a BiPAP in place. The patient was initially a little difficult to arouse but once aroused was completely lucid and answered questions appropriately. He tells me he has periods where he does feel warm but no chills. He denies significant shortness of breath and tells me in the past he has attempted to use CPAP at home but without much success. He states he has a minimal cough and no chest pain. He has had no nausea or vomiting. He notes that his left knee and leg are completely pain free. He is not bothered all by the cellulitis on his leg. PHYSICAL EXAMINATION: Reveals an afebrile gentleman, temperature 36.5, but he did spike yesterday evening to 38.5. At about the same time, he was hypotensive. His current pulse is 66, respiratory rate 14 on the BiPAP saturating very well at 99%. Blood pressure 130/74, without vasopressors. As noted he is awake and alert after a bit of prodding. Oral cavity is difficult to see behind the BiPAP but appears benign. His lungs are quite clear bilaterally. Cardiac tones irregular rate and rhythm. The patient's abdomen is slightly distended, but soft and nontender. Both knees move easily and are pain free. There is remaining cellulitis present over the left knee but it is smaller and smaller each day and centered over the patella. There is no palpable fluctuant mass consistent with abscess nor any bullae. LABORATORIES: Include white count 9900, platelet count 206, creatinine 133 which has dramatically increased over the past two days and note that those chemistries and hematologies are yesterday's labs and I have asked for immediate labs to be drawn this morning here in the ICU and placed those orders. Others labs of interest include a negative streptozyme, anti DNase B and VZV PCR pending. Blood cultures are all negative. Yesterday's chest x-ray was clear. IMPRESSION: This patient had been doing well with respect to his cellulitis which initially started off with some systemic toxicity and very high fevers. Certainly appears that this is a streptococcal cellulitis and it is now starting to improve by physical examination. There is no evidence for septic knee or abscess at this time by clinical examination. His creatinine had doubled between the and the 16 of October and so we had switched from vanco to daptomycin as our primary drug and we are still awaiting the MRSA screen to help to further narrow his antibiotics. Overnight, the patient seems to have had a period of respiratory failure with associated hypotension during the time of a fever spike. This promptly responded to fluid boluses and BiPAP and no vasopressors or intubation were required. RECOMMENDATIONS: 1. We await the pending serologies and cultures especially the MRSA screen. 2. Will continue with dapto and Zosyn until we have back the MRSA screen, and if that is negative, I think we can start to narrow our antibiotics considerably. 3. Will closely follow this patient in his ICU stay and hopefully this will be very short.
[2016-10-17 08:47] LABS: BASOPHILS % (AUTO) 0.2 % (0-3); EOSINOPHILS % (AUTO) 4.5 % (0-5); MONOCYTES % (AUTO) 9.8 % (4-12); Mean Corpuscular Hemoglobin 29.1 pg (27.0-35.0); Mean Corpuscular Volume 95.1 fL (81-100); NEUTROPHILS % (AUTO) 67.7 % (40-74); Platelet Count 167 bil/L (150-400)
[2016-10-17] MEDS: DAPTOmycin Inj 750 MG in 0.9% Sodium Chloride 50 ML IV SCH (10:57)
--- NOTE | 2016-10-17 11:38 | NUR ---
NUTRITION ASSESSMENT ASSESS: Pt is an 85 yo male admitted w/ cellulitis in his left knee and erythema. Pt started on Bipap, and was minimally responsive. Pt transferred to CCU on 10/16. Per MD, pt was alert and oriented today, and states no pain in left leg. Per ST, pt presents w/ slurred speech and generalized weakness. 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 NEEDS: BMI>40 Kcals: 1994-9593 kcal/day (25-30 kcal/kg ABW) Pro: 100-125 g/day (1.2-1.5 g/kg ABW) Fluids: 2780-3580 ml (approx. 1 ml/kcal/day) NUTRITION DIAGNOSIS: 1) Chew/swallowing difficulties related to CVA induced weakness as evidenced by need for texture altered diet per ST. NUTRITION INTERVENTION: 1) Will add Glucerna to B trays to increase calorie and protein intake. 2) Will add Gelatein 20 to L&D trays to increase calorie and protein intake. MONITOR / EVAL: PO intake, diet adv/jose alberto, labs, GI, nutrition status. Will continue to monitor per moderate nutritional risk guidelines. Addendum: 10/17/16 at [address] Student documentation reviewed and I agree with the above assessment. Arnel Harrison, MS, RDN, CD
--- NOTE | 2016-10-17 12:45 | NUR ---
Trial on Pt home bipap system. Sat 94% with 4L bleed in, RR 16, Hr 58
[2016-10-17] MEDS ORDERED: Vancomycin Serum Trough XX ONE (13:00)
--- NOTE | 2016-10-17 13:10 | NUR ---
Trial over. Pt did not respond well to being on home set up. Saturation went down, color of lips became dusky, Pt became increased somnolent. Pt back on V60, interacting better with switch. Sat 100% HR 57 RR 17
--- NOTE | 2016-10-17 13:54 | NUR ---
Evaluation completed. Please go to "Notes" then click on "Assessments and Notes" (bottom left corner of screen). Then select appropriate discipline tab on top of screen.
[2016-10-17] MEDS: Pantoprazole 40 mg ER24 Tablet PO SCH (13:56)
--- NOTE | 2016-10-17 15:50 | NUR ---
Mentation/Morning oral medications/PO intake/SpO2: P: Patient is oriented to self and year. States he is in [place] and when asked again he stated [place]. Is not able to hold attention and is very somnolent. I: Patient was reoriented. Morning medications and PO was held due to aspiration risk. E: Morning PO medications given this afternoon. Pt tolerated well, but continued to be somnolent and was unable to hold attention for more than a couple minutes at a time. Pt desaturated to mid 80's when taken off BiPAP to take PO medication.
--- NOTE | 2016-10-17 17:32 | NUR ---
spiritual care: follow continuing to follow, brief greeting and updates from pt's .
--- NOTE | 2016-10-17 18:15 | PCM.PNMED ---
Subjective Date of Service Oct 17, 2016 Subjective Patient is an 85-year-old male with type 2 diabetes mellitus, coronary artery disease status post CABG, prior cerebrovascular accident with residual left lower extremity weakness presenting with left lower extremity swelling and erythema. Today is hospital day 3. Today, patient denies any fever, chills, chest pain, abdominal pain, or leg pain. He does not have any concerns right now. He states that he had a cut on his left knee but does not remember how. He has a CPAP at home, but he reports that he does not use it consistently. He is drowsy. Exam Vital Signs Vital Sign - Last Date Time Temp Pulse Resp B/P Pulse Ox O2 Delivery O2 Flow Rate FiO2 10/17/16 04:47 66 10/17/16 04:30 36.5 14 130/74 99 BiPAP 50 10/16/16 14:55 8.00 Intake and Output 10/16/16 10/16/16 10/17/16 Cumulative From/Thru 15:00 23:00 07:00 10/14/16 20:11 - 10/17/16 05:08 Intake Total 3110 ml 3375 ml 15256 ml Output Total 75 ml 375 ml Balance 3110 ml 3300 ml 97633 ml Intake Oral 454 ml IV Total 3110 ml 3375 ml 32247 ml Output Urine Total 75 ml 275 ml Emesis 100 ml # Voids 1 3 6 # Bowel Movements 0 0 Exam General: Drowsy. No acute distress, well-developed, well-nourished. Mumbled and garbled speech. HEENT: Normocephalic, atraumatic. External ears without defect. Pupils equal, round, and reactive to light. Excessive lacrimation bilaterally. Oropharynx free of erythema and cobble stoning with moist mucosa. Neck: Supple. No lymphadenopathy or thyromegaly. Cardiovascular: Distant heart sounds. Regular rate and rhythm with occasional ectopy. Soft systolic murmur. Pulmonary: Fine rales bilaterally at lung bases. No wheezes or rhonchi. Normal respiratory effort with no use of accessory muscles. Speaks in 1-3 words sentences. Abdomen: Bowel tones present. Soft, nontender, nondistended. Extremities: Left knee with erythema, warmth and swelling improved compared to pen marking. Area of erythema is demarcated. Mild tenderness at superior left knee. Skin: No visible rash on exposed skin. Neurological: Cranial nerves grossly intact. Psychiatric: Normal mood and affect. Drowsy but able to follow commands and responds to verbal stimuli. Oriented to person and time. IVs and Medications Medications Reviewed: Medications were reviewed in detail Lab and Diagnostics Result Diagram: 10/16/16 1119 10/16/16 1119 X-Rays, CTs and MRIs PROCEDURE: X-RAY LEFT KNEE, THREE VIEWS Date of Service: 10/14/16 2020 IMPRESSION: Bipartite patella, no osteomyelitis or foreign body seen. Swelling in the soft tissues ventral to the patella but no gas in those soft tissues is found. Approved by: Pa Madrigal M.D. on 10/14/2016 at 21:13 PROCEDURE: X-RAY CHEST ONE VIEW, PORTABLE Date of Service: 10/16/16 0700 IMPRESSION: No acute cardiopulmonary disease. Transcribed by: ODILIA on 10/16/2016 at 9:55 12-lead ECG SR. 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 Today is hospital day 3. 1. Acute severe sepsis with source of infection left knee cellulitis - On 10/16/2016, at 08:36 patient's temperature was 39C and respiratory rate was 22. He has a active left knee cellulitis. Patient became hypotensive at 13 :00 on 10/16/2016 and his creatinine increased to 1.33. He also had an episode of altered mental status with decreased responsiveness on 10/16/2016. - Blood pressure is now stable - Patient continues to be drowsy - Patient received aggressive intravenous fluid resuscitation and did not need vasopressors. - Continue with antibiotics as below - Hold blood pressure medications (not tachycardic likely due to receiving metoprolol earlier on 10/16/2016) 2. Acute left knee cellulitis. Present on admission. Active -Left knee with erythema and swelling, possibly from streptococcal bacterial infection -Knee x-ray shows swelling in the soft tissues ventral to the patella but no gas in those soft tissues is found -Streptozyme 48.6, within normal limits -White blood cell count 5.8 today - Erythema decreased compared to pen line -Antibiotics Zosyn and vancomycin initially started. Vancomycin was discontinued and patient was placed on daptomycin while MRSA screen was pending. -Patient switched from Zosyn and Daptomycin to Ancef today after MSRA came back negative -Infectious disease consulted and following. His are time and recommendations are appreciated 3. Acute hypoventilation and acute hypoxic exacerbation of chronic respiratory failure. Not present on admission. Active. - Oxygen saturation at 84% while on CPAP at 14:49 on 10/16/2016 - Likely due to chronic respiratory failure from inadequate use of at home CPAP machine for chronic obstructive sleep apnea and from body habitus causing hypoventilation -Acute severe sepsis likely contributing to patient's acute exacerbation of respiratory failure - ABG on CPAP showin.32, 57, 66, 28.6 -Patient currently on BiPAP but CPAP/BiPAP are no longer effective therapy. Patient needs Trilogy for set rate, minimum flow, and added support. -Patient requires a noninvasive mechanical ventilator to prevent life- threatening exacerbations and future hospital readmissions due to chronic respiratory failure. 4. Coronary artery disease status post coronary artery bypass graft present on admission. Active -Continue home atorvastatin, clopidogrel, aspirin 5. Type 2 diabetes mellitus, chronic. Present on admission. Active -No home antiglycemic agents -Hemoglobin A1c 7% -Monitor blood glucose levels 6. Obstructive sleep apnea, chronic. Present on admission. Active -Has CPAP at home but hasn't used in about one month 7. Hypertension, chronic. Present on admission. -Hold for now since patient had hypo-tension yesterday -Continue to monitor 8. Gastroesophageal esophageal reflux disease, chronic. Present on admission. -Continue home proton pump inhibitor 9. History of peripheral vascular accident -Continue aspirin, clopidogrel 10. Vesicular rash. Present on admission. Improving - VZV PCR pending 11. Class III obesity - Patient's BMI is 42.9 Patient Status: Patient is admitted under inpatient status with expected length of stay greater than 2 midnights due to severity of presenting symptoms, risk of adverse event, and complexity of treatment plan. VTE Prophylaxis: Sub-Q Heparin (Unfractionated) Resuscitation Status: DNR/DNI:Do Not Resuscitate/Intubate VTE Prophylaxis: Sub-Q Heparin (Unfractionated) Resuscitation Status: DNR/DNI:Do Not Resuscitate/Intubate Attending Statement The patient was seen and examined together with Dr. Malloy on 10/17/2016 and I agree with the history, exam and plan as outlined in the note above. . Veda Malloy DO Oct 17, 2016 07:45 Denny Kang MD Oct 18, 2016 18:40 Veda Malloy DO Oct 17, 2016 07:45
[2016-10-17] MEDS: CeFAZolin Inj 1 GM in IV Premix 1 EACH IV SCH (18:27)
[2016-10-18] VITALS (9 sets, daily range): BP systolic 119–153; BP diastolic 58–80; PULSE 62–85; RESP 16–28; O2SAT 93–99
[2016-10-18] MEDS: CeFAZolin Inj 1 GM in IV Premix 1 EACH IV SCH ×2 (00:57→07:42)
[2016-10-18] MEDS: Heparin 5,000 Unit/mL Inj SUBQ SCH ×3 (01:03→16:07)
[2016-10-18] MEDS: 0.9% Sodium Chloride 1,000 ML IV SCH ×2 (02:53→16:07)
--- NOTE | 2016-10-18 03:33 | NUR ---
Cardiac Rhythm/BiPAP/Cellulitis Pt's had 7 beats of Vtach at 2130 and was asymptomatic. Pt's BiPAP FiO2 was decreased from 50% to 40% and pt's SpO2 on new setting is 96-97%. Pt's left knee cellulitis has receded from original borders outlined in black and currently only shows on the knee cap. The cellulitis feels slightly warm to the touch. Pt does not c/o pain.
[2016-10-18 05:05] LABS: BASOPHILS % (AUTO) 0.2 % (0-3); EOSINOPHILS % (AUTO) 5.4 % (0-5); MONOCYTES % (AUTO) 12.9 % (4-12); Mean Corpuscular Hemoglobin 28.9 pg (27.0-35.0); Mean Corpuscular Volume 95.4 fL (81-100); NEUTROPHILS % (AUTO) 63.1 % (40-74); Platelet Count 159 bil/L (150-400)
[2016-10-18] MEDS ORDERED: Calcium GLUCO 10% (Gm) 1 Gm/10 mL 50 mL Inj IV ONE (06:40)
[2016-10-18] MEDS ORDERED: Calcium GLUCO 10% (Gm) Inj 1 GM in Dextrose 5% 100 ML IV ONE (07:05)
[2016-10-18] MEDS: Pantoprazole 40 mg ER24 Tablet PO SCH (07:44)
--- NOTE | 2016-10-18 10:38 | PCM.PNMED ---
Subjective Date of Service Oct 18, 2016 Subjective Patient is an 85-year-old male with type 2 diabetes mellitus, coronary artery disease status post CABG, prior cerebrovascular accident with residual left lower extremity weakness presenting with left lower extremity swelling and erythema. Today is hospital day 4. Overnight: Patient had 7 beats of ventricular tachycardia that was not sustained and patient was asymptomatic. Today, patient does not have any fever, chills, chest pain, abdominal pain, or leg pain. He states that he gets short of breath when he is not positioned correctly in bed. He is more alert and interactive compared to yesterday. Exam Vital Signs Vital Sign - Last Date Time Temp Pulse Resp B/P Pulse Ox O2 Delivery O2 Flow Rate FiO2 10/18/16 05:47 61 21 131/58 99 40 10/18/16 02:56 37.5 BiPAP 10/17/16 20:37 5.00 Intake and Output 10/17/16 10/17/16 10/18/16 Cumulative From/Thru 15:00 23:00 07:00 10/14/16 20:11 - 10/18/16 05:25 Intake Total 1838 ml 1593 ml 84286 ml Output Total 375 ml Balance 1838 ml 1593 ml 68256 ml Intake Oral 50 ml 60 ml 564 ml IV Total 1788 ml 1533 ml 37175 ml Output Urine Total 275 ml Emesis 100 ml # Voids 9 4 19 # Bowel Movements 0 0 Exam General: Alert. No acute distress, well-developed, well-nourished. Mumbled and garbled speech. HEENT: Normocephalic, atraumatic. External ears without defect. Pupils equal, round, and reactive to light. Excessive lacrimation bilaterally. Oropharynx free of erythema and cobble stoning with moist mucosa. Neck: Supple. No lymphadenopathy or thyromegaly. Cardiovascular: Distant heart sounds. Regular rate and rhythm with occasional ectopy. Soft systolic murmur. Pulmonary: Fine rales bilaterally at lung bases. No wheezes or rhonchi. Normal respiratory effort with no use of accessory muscles. Speaks in 1-3 words sentences. Abdomen: Bowel tones present. Soft, nontender, nondistended. Extremities: Left knee with erythema, warmth and swelling greatly improved compared to pen marking. Area of erythema is demarcated and limited to his anterior left knee. Skin: No visible rash on exposed skin. Neurological: Cranial nerves grossly intact. Psychiatric: Normal mood and affect. Drowsy but able to follow commands and responds to verbal stimuli. Oriented to person and time. IVs and Medications Medications Reviewed: Medications were reviewed in detail Lab and Diagnostics Result Diagram: 10/18/1644410/18/16444 X-Rays, CTs and MRIs PROCEDURE: X-RAY LEFT KNEE, THREE VIEWS Date of Service: 10/14/16 2020 IMPRESSION: Bipartite patella, no osteomyelitis or foreign body seen. Swelling in the soft tissues ventral to the patella but no gas in those soft tissues is found. Approved by: Pa Madrigal M.D. on 10/14/2016 at 21:13 PROCEDURE: X-RAY CHEST ONE VIEW, PORTABLE Date of Service: 10/16/16 0700 IMPRESSION: No acute cardiopulmonary disease. Transcribed by: ODILIA on 10/16/2016 at 9:55 12-lead ECG SR. 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 Today is hospital day 3. 1. Acute severe sepsis with source of infection left knee cellulitis - On 10/16/2016, at 08:36 patient's temperature was 39C and respiratory rate was 22. He has a active left knee cellulitis. Patient became hypotensive at 13 :00 on 10/16/2016 and his creatinine increased to 1.33. He also had an episode of altered mental status with decreased responsiveness on 10/16/2016. - Blood pressure is now stable - Patient received aggressive intravenous fluid resuscitation and did not need vasopressors. - Continue with antibiotics as below - Held blood pressure medications (not tachycardic likely due to receiving metoprolol earlier on 10/16/2016) - Decreased normal saline to rate of 100 ml/hour now that his blood pressure is stable 2. Acute left knee cellulitis. Present on admission. Active -Left knee with erythema and swelling, possibly from streptococcal bacterial infection -Knee x-ray shows swelling in the soft tissues ventral to the patella but no gas in those soft tissues is found -Streptozyme 48.6, within normal limits -White blood cell count 5.9 today -Erythema continues to decrease compared to pen line. It is limited to his left anterior knee -Antibiotics Zosyn and vancomycin initially started. Vancomycin was discontinued and patient was placed on daptomycin while MRSA screen was pending. -Patient switched from Zosyn and Daptomycin to Ancef yesterday after MSRA came back negative. Will continue antibiotic course for at least 10 days per infectious disease. -Infectious disease consulted and following. His are time and recommendations are appreciated 3. Acute hypoventilation and acute hypoxic exacerbation of chronic respiratory failure. Not present on admission. Active. - Oxygen saturation at 84% while on CPAP at 14:49 on 10/16/2016 - Likely due to chronic respiratory failure from inadequate use of at home CPAP machine for chronic obstructive sleep apnea and from body habitus causing hypoventilation - Acute severe sepsis likely contributing to patient's acute exacerbation of respiratory failure - Previous ABG on CPAP showin.32, 57, 66, 28.6 -Patient currently on BiPAP but CPAP/BiPAP are no longer effective therapy. Patient needs Trilogy for set rate, minimum flow, and added support. -Patient requires a noninvasive mechanical ventilator to prevent life- threatening exacerbations and future hospital readmissions due to chronic respiratory failure. -Continue to monitor 4. Hypocalcemia. Acute. Not present on admission. Improved. -Patient's calcium 6.8 this morning -He was given 1 gram IV calcium gluconate this morning -Rechecked BMP and checked magnesium 2 hours after infusion complete -Calcium improved to 7.6, magnesium is 1.7 -Continue to monitor 5. Hypertension, chronic. Present on admission. Active -Hold for now since patient had hypotension 2 days ago -Resumed patient's home metoprolol 25 mg twice per day -Continue to monitor -Consider resuming patient's home lisinopril 5 mg daily tomorrow pending continued stable blood pressure 6. Obstructive sleep apnea, chronic. Present on admission. Active -Has CPAP at home but hasn't used in about one month 7. Type 2 diabetes mellitus, chronic. Present on admission. Active -No home antiglycemic agents -Hemoglobin A1c 7% -Monitor blood glucose levels -Once patient is eating meals, add insulin to medications 8. Coronary artery disease status post coronary artery bypass graft present on admission. Active -Continue home atorvastatin, clopidogrel, aspirin 9. Gastroesophageal esophageal reflux disease, chronic. Present on admission. -Continue home proton pump inhibitor 10. History of peripheral vascular accident -Continue aspirin, clopidogrel 11. Vesicular rash. Present on admission. Improved - VZV PCR negative 12. Class III obesity - Patient's BMI is 42.9 Acetaminophen for mild pain when necessary. Bowel regimen Senna and MiraLAX scheduled and PRN. Zofran when necessary for nausea and vomiting. Patient Status: Patient is admitted under inpatient status with expected length of stay greater than 2 midnights due to severity of presenting symptoms, risk of adverse event, and complexity of treatment plan. VTE Prophylaxis: Sub-Q Heparin (Unfractionated) Resuscitation Status: DNR/DNI:Do Not Resuscitate/Intubate VTE Prophylaxis: Sub-Q Heparin (Unfractionated) Resuscitation Status: DNR/DNI:Do Not Resuscitate/Intubate Attending Statement The patient was seen and examined together with Dr. Malloy on 10/18/2016 and I agree with the history, exam and plan as outlined in the note above. . Veda Malloy DO Oct 18, 2016 07:30 Denny Kang MD Oct 18, 2016 18:40
[2016-10-18 14:24] LABS: Magnesium 1.7 mg/dL (1.6-2.6)
--- NOTE | 2016-10-18 14:29 | PROG NOTE ---
[address] [address] PROGRESS NOTE PATIENT: REGGIE ESPINOZA : 1930 MR#: [id number] ADMIT: 10/15/2016 JOB ID: [id number] DATE: 10/18/2016 INFECTIOUS DISEASE FOLLOWUP NOTE: REASON FOR FOLLOWUP: Severe left lower extremity cellulitis. INTERVAL HISTORY: Recall that this is a morbidly obese patient with multiple underlying problems including his systemic toxicity secondary to his left lower extremity cellulitis. Recall that the patient was transferred to the ICU the evening of October 16 because of a period of hypotension with incipient respiratory failure and increased somnolence. He since improved considerably and is now awake, alert and back to his normal self mentally and from a respiratory point of view. He reports that his breathing is much better and that he is not having fevers or chills. He denies difficulty breathing above his baseline which is certainly not normal. No significant cough. No abdominal pain. He notes his left knee still hurts a bit right over the patella but it is improving day by day, and he has full range of motion of that knee. PHYSICAL EXAMINATION: Reveals an afebrile gentleman, temperature 37.8, pulse 71, respiratory rate 19, blood pressure 146/61, saturating 95%. He is on 6 L nasal cannula. He is today completely lucid and making jokes, no longer in any distress. Oral cavity is negative. Lungs fairly clear bilaterally, though decreased breath sounds somewhat. Cardiac tones are distant but regular. Abdomen obese, soft, and nontender. Left lower extremity cellulitis continues to improve by about 10% a day. It is now really concentrated on the area right over his left knee. There is no bullae or skin breakdown, and his knee has full range of motion on the left. His left knee has full range of motion. LABORATORIES: Micro includes a negative blood culture, as well as a negative MRSA screen. Recall that his ASO titer was negative. His VZV PCR of the skin was also negative. His other streptococcal serology, the anti-DNase B is still pending. IMPRESSION: This patient continues to improve slowly, though he obviously has a lot of comorbidities in addition to his current problems. His cellulitis appears to be streptococcal and even though we have a negative ASO titer, that by no means excludes the possibility of group A streptococcus or for that matter another beta hemolytic streptococcus. I believe he will need a very prolonged course of antibiotics. We could eventually transition to oral. RECOMMENDATIONS: 1. I would discontinue the daptomycin and Zosyn. 2. I would transition the patient to Ancef, and the dose here would be 2 g q.8 h. 3. Once the patient is ready for discharge, which I would anticipate will occur in a few more days, he could be transitioned to an oral cephalosporin such as Keflex or cefuroxime to complete at least a 10-day course of therapy. 4. Infectious Disease will go ahead and sign off on this case but please do not hesitate to call me if there are additional questions or answers about this or any other case.
[2016-10-18] MEDS: CeFAZolin Inj 2 GM in Dextrose 5% 50 ML IV SCH (16:13)
--- NOTE | 2016-10-18 16:19 | NUR ---
Social Work: Continued discharge planning tray room worker met with patient's and communicated via commutator v ring assembler. Patient's states that patient is unable to stay down stairs when discharged because the patient is unable to get into the downstairs bathroom. Patient's states that she will be his 24 hour caregiver and will look into having someone come in through the patient LTC insurance. Patient is likely to discharge home with as 24hour caregiver and [facility]. SW will continue to follow for discharge planning needs. Aleja Anthony. CANCER RESEARCHER, ACM
--- NOTE | 2016-10-18 16:29 | NUR ---
Social Work: Continued Discharge Planning Internet Salesperson spoke with respiratory therapist Cecilia who stated that per patient's DME provider the patient does not have a qualifying diagnosis for a trilogy. SW notified patient's physician. Aleja Anthony LMSW, ACM
--- NOTE | 2016-10-18 17:22 | NUR ---
P: Resp, Hemodynamics, Nutrition, Social I,E: Pt does not require nasal trumpet in anymore and this was removed today. O2 5l via NC and sats are mid to high 90's. He does have an occ moist cough, and crackles posteriorally. Pt has a bipap from home. There has been some confusion about this as pt had stated they took his equipment, but this was O2 supplies, not his bipap. RT will come tomorrow and work with pt and his to make sure they understand how to use the bipap approp and help answer any questions to facilitate pt using the bipap at home. VS have been stable, although temp has increased throughout the day. Antibiotics have been addressed today. I re-marked the redness on his left knee, which has reduced dramatically from previous markings but I want to ensure it continues to recede. Pt has been taking diet and fluids well, as recommended by speech. Pt is incontinent of urine and wears a brief. This was changed frequently today, and calmoseptine applied to groin area which is intact, but looks like this is a chronically moist area. He also has a small open area on the end of his penis. I have applied calmoseptine to this area also and we will continue to monitior. He had a moderate sized formed BM today, but did complain that he felt constipated. Senokot was given as ordered. Pt's is at the bedside most of the day, she does not speak [place]. Pt was talking with his daughter in law r.e. going to a group home to re-hab prior to going home. PT is recommending SNF also. Pt has a supportive family.
[2016-10-19] VITALS (7 sets, daily range): BP systolic 72–165; BP diastolic 46–69; PULSE 26–73; RESP 16–24; O2SAT 90–100
[2016-10-19] MEDS: CeFAZolin Inj 2 GM in Dextrose 5% 50 ML IV SCH ×3 (00:54→16:48)
[2016-10-19] MEDS: Heparin 5,000 Unit/mL Inj SUBQ SCH ×3 (00:54→16:48)
[2016-10-19] MEDS: 0.9% Sodium Chloride 1,000 ML IV SCH ×2 (00:54→12:37)
[2016-10-19 05:33] LABS: BASOPHILS % (AUTO) 0.2 % (0-3); EOSINOPHILS % (AUTO) 3.8 % (0-5); MONOCYTES % (AUTO) 13.5 % (4-12); Mean Corpuscular Hemoglobin 28.8 pg (27.0-35.0); Mean Corpuscular Volume 93.7 fL (81-100); NEUTROPHILS % (AUTO) 59.6 % (40-74); Platelet Count 181 bil/L (150-400)
--- NOTE | 2016-10-19 06:29 | NUR ---
Cellulitis/Temperature Pt has a portion of the left medial knee that appears slightly pink on the outside of the new black border that is marking the area where the pt has cellulitis and this needs to continue to be monitored. Pt has not c/o pain where the cellulitis is located. Pt has ran a low-grade temperature from 99-100.
--- NOTE | 2016-10-19 06:39 | NUR ---
Home CPAP Trial/Haroon HR Pt used his own CPAP machine from home instead of the BIPAP that he has been using these last few nights. Pt's SpO2 on 4L bleed-in was 89-94% so O2 was increased to 5L bleed-in and SpO2 was 94-96%. Pt was able to be titrated back down to 4L which is what the pt has been using when awake via oxymask or NC. At 0345 it appeared that the pt's HR went down into the 30s for a few seconds and then the pt went back into the 50s where the pt remained for most of the night.
[2016-10-19] MEDS: Pantoprazole 40 mg ER24 Tablet PO SCH (09:22)
[2016-10-19] MEDS ORDERED: Glucose 40% Oral Gel 15 Gm Tube PO PRN (10:40)
[2016-10-19] MEDS: Insulin LISPRO 300 Unit/3 mL Inj SUBQ SCH ×3 (12:00→22:00)
--- NOTE | 2016-10-19 13:33 | NUR ---
Bradycardia/ Activity: P: pulse 30-40's this AM on assessment I: aware. Metoprolol 25mg PO held. E: pulse this afternoon mid 60's. Pt denies CP or palpitations. Pt worked with PT this morning. pt was able to transfer to chair with use of FWW and 1PA. Tolerated sitting up for about two hours.
--- NOTE | 2016-10-19 13:54 | NUR ---
Social Work Continued Discharge Planning: Maya & Assessment: Cook Dinner and patient's nurse (French speaking) met with patient and patient's to discuss discharge planning. Patient and patient were both in agreement with patient being referred to SNF. Cook Dinner provided the patient with choices and the patient chose [facility]. SW gave access to [facility] and faxed facesheet. Plan: Patient is likely to discharge to [facility] if approved. SW will continue to follow. Aleja Anthony LMSW, BERTA
--- NOTE | 2016-10-19 15:26 | PCM.PNMED ---
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 Today is hospital day 4. Overnight: Patient had sinus bradycardia overnight. Today, patient does not have any fever, chills, chest pain, shortness of breath , or leg pain. He is sitting in the bedside care with only oxygen via nasal cannula today. He is oriented to place and knows that he is in [facility]. Exam Vital Signs Vital Sign - Last Date Time Temp Pulse Resp B/P Pulse Ox O2 Delivery O2 Flow Rate FiO2 10/19/16 04:51 37.2 55 22 120/49 94 CPAP 10/19/16 00:06 3.00 10/18/16 05:47 40 Intake and Output 10/18/16 10/18/16 10/19/16 Cumulative From/Thru 15:00 23:00 07:00 10/14/16 20:11 - 10/19/16 06:30 Intake Total 2063 ml 1304 ml 16971 ml Output Total 375 ml Balance 2063 ml 1304 ml 36045 ml Intake Oral 720 ml 50 ml 1334 ml IV Total 1343 ml 1254 ml 86681 ml Output Urine Total 275 ml Emesis 100 ml # Voids 5 2 26 # Bowel Movements 0 Exam General: Alert. No acute distress, well-developed, well-nourished. Mumbled and garbled speech. HEENT: Normocephalic, atraumatic. External ears without defect. Pupils equal, round, and reactive to light. Mild lacrimation bilaterally. Oropharynx free of erythema and cobble stoning with moist mucosa. Neck: Supple. No lymphadenopathy or thyromegaly. Cardiovascular: Distant heart sounds. Regular rate and rhythm with occasional ectopy. Soft systolic murmur. Pulmonary: Clear to auscultation bilaterally. No rales, wheezes, or rhonchi. Normal respiratory effort with no use of accessory muscles. Speaks in 5-10 word sentences. Abdomen: Bowel tones present. Soft, nontender, nondistended. Extremities: Left knee with erythema, warmth and swelling greatly improved compared to pen marking. Area of erythema is demarcated and limited to his a portion of his anterior left knee. Ecchymosis on right posterior upper arm inferior to the acromion process. Skin: No visible rash on exposed skin. Neurological: Cranial nerves grossly intact. Psychiatric: Normal mood and affect. Awake, alert, and oriented to person, place, and time. IVs and Medications Medications Reviewed: Medications were reviewed in detail Lab and Diagnostics Result Diagram: 10/19/1644410/19/16444 X-Rays, CTs and MRIs PROCEDURE: X-RAY LEFT KNEE, THREE VIEWS Date of Service: 10/14/162019 IMPRESSION: Bipartite patella, no osteomyelitis or foreign body seen. Swelling in the soft tissues ventral to the patella but no gas in those soft tissues is found. Approved by: Pa Madrigal M.D. on 10/14/2016 at 21:13 PROCEDURE: X-RAY CHEST ONE VIEW, PORTABLE Date of Service: 10/16/16 0700 IMPRESSION: No acute cardiopulmonary disease. Transcribed by: ODILIA on 10/16/2016 at 9:55 12-lead ECG SR. 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 Today is hospital day 3. 1. Acute severe sepsis with source of infection left knee cellulitis, present on admission. Improving. - On 10/16/2016, at 08:36 patient's temperature was 39C and respiratory rate was 22. He has a active left knee cellulitis. Patient became hypotensive at 13 :00 on 10/16/2016 and his creatinine increased to 1.33. He also had an episode of altered mental status with decreased responsiveness on 10/16/2016. - Blood pressure is now stable - Patient received aggressive intravenous fluid resuscitation and did not need vasopressors. - Continue with antibiotics as below - Held blood pressure medications (not tachycardic likely due to receiving metoprolol earlier on 10/16/2016) 2. Acute left knee cellulitis. Present on admission. Active -Left knee with erythema and swelling, possibly from streptococcal bacterial infection -Knee x-ray shows swelling in the soft tissues ventral to the patella but no gas in those soft tissues is found -Streptozyme 48.6, within normal limits -White blood cell count 6.4 today -Erythema continues to decrease compared to pen line. It is limited to his left anterior knee. -Antibiotics Zosyn and vancomycin initially started. Vancomycin was discontinued and patient was placed on daptomycin while MRSA screen was pending. -Patient switched from Zosyn and Daptomycin to Ancef on 10/18/2016 after MSRA came back negative. Dr. Thomason recommends that he could be transitioned to an oral cephalosporin such as Keflex or cefuroxime to complete at least a 10-day course of therapy. -Infectious disease consulted and following. His are time and recommendations are appreciated. 3. Acute hypoventilation and acute hypoxic exacerbation of chronic respiratory failure. Not present on admission. Improved. - Oxygen saturation at 84% while on CPAP at 14:49 on 10/16/2016 - Likely due to chronic respiratory failure from inadequate use of at home CPAP machine for chronic obstructive sleep apnea and from body habitus causing hypoventilation - Acute severe sepsis likely contributing to patient's acute exacerbation of respiratory failure - Previous ABG on CPAP showin.32, 57, 66, 28.6 -Patient oxygen saturation at 93% on 4 liters of oxygen by nasal cannula -Continue to monitor 4. Hypertension, chronic. Present on admission. Active -Held since patient had hypotension 3 days ago -Resumed patient's home metoprolol 25 mg twice per day yesterday, hold if heart rate <60 bpm -Resumed patient's home lisinopril 5 mg daily -Continue to monitor -Discontinued normal saline as patient is now eating and drinking and blood pressure is stable 5. Obstructive sleep apnea, chronic. Present on admission. Active -Has CPAP at home but hasn't used in about one month -Continue CPAP at night with new, better fitting mask 6. Type 2 diabetes mellitus, chronic. Present on admission. Active -No home antiglycemic agents -Hemoglobin A1c 7% -Monitor blood glucose levels -Medium correctional insulin scale started 7. Hypocalcemia. Acute. Not present on admission. Improved. -Patient's calcium 6.8 yesterday -He was given 1 gram IV calcium gluconate yesterday -Rechecked BMP and checked magnesium 2 hours after infusion complete -Calcium improved to 7.6, magnesium is 1.7. Calcium 7.7 today. -Continue to monitor 8. Coronary artery disease status post coronary artery bypass graft present on admission. Active -Continue home atorvastatin, clopidogrel, aspirin 9. Gastroesophageal esophageal reflux disease, chronic. Present on admission. -Continue home proton pump inhibitor 10. History of peripheral vascular accident -Continue aspirin, clopidogrel 11. Vesicular rash. Present on admission. Improved - VZV PCR negative 12. Class III obesity - Patient's BMI is 42.9 Acetaminophen for mild pain when necessary. Bowel regimen Senna and MiraLAX scheduled and PRN. Zofran when necessary for nausea and vomiting. Patient Status: Patient is admitted under inpatient status with expected length of stay greater than 2 midnights due to severity of presenting symptoms, risk of adverse event, and complexity of treatment plan. VTE Prophylaxis: Sub-Q Heparin (Unfractionated) Resuscitation Status: DNR/DNI:Do Not Resuscitate/Intubate Disposition: Patient likely to be discharged in the next 1-3 days to [facility] ([facility]) pending placement, continued stable blood pressure, and continued improvement of his left leg cellulitis to be treated with at least 10 days of antibiotics and of his respiratory failure. Pain Evaluation: Adequate Pain Control VTE Prophylaxis: Sub-Q Heparin (Unfractionated) Resuscitation Status: DNR/DNI:Do Not Resuscitate/Intubate Attending Statement The patient was seen and examined together with Dr. Malloy on 10/19/2016 and I agree with the history, exam and plan as outlined in the note above. . Veda Malloy DO Oct 19, 2016 07:47 Denny Kang MD Oct 20, 2016 07:54
[2016-10-20] MEDS: CeFAZolin Inj 2 GM in Dextrose 5% 50 ML IV SCH ×3 (02:05→18:16)
[2016-10-20] MEDS: Heparin 5,000 Unit/mL Inj SUBQ SCH ×3 (02:07→17:27)
[2016-10-20 04:29] LABS: BASOPHILS % (AUTO) 0.2 % (0-3); EOSINOPHILS % (AUTO) 3.8 % (0-5); MONOCYTES % (AUTO) 11.8 % (4-12); Mean Corpuscular Hemoglobin 29.2 pg (27.0-35.0); Mean Corpuscular Volume 92.3 fL (81-100); NEUTROPHILS % (AUTO) 58.2 % (40-74); Platelet Count 185 bil/L (150-400)
--- NOTE | 2016-10-20 07:36 | NUR ---
BiPap/HR Pt used home BiPap during sleep and with a 4L bleed-in. Initially pt had a bleed-in of 6L and pt SpO2 was 95-97% but pt would klarissa down from HR 50s to HR 30s frequently. I titrated pt's bleed-in O2 to 4L so that pt's SpO2 was 93-95% and pt's HR remained in the 50s with sleep and would only klarissa down into the 40s occasionally. When pt is awake his HR is 60s-80s. Pt had a HR in the 60s and was hypertensive and given HS metoprolol.
[2016-10-20] MEDS: Insulin LISPRO 300 Unit/3 mL Inj SUBQ SCH ×4 (08:00→20:34)
[2016-10-20] MEDS: Pantoprazole 40 mg ER24 Tablet PO SCH (09:26)
[2016-10-20 09:31] VITALS: BP 147/71; PULSE 67; RESP 18; O2SAT 98
--- NOTE | 2016-10-20 11:32 | NUR ---
REI REI signed
[2016-10-20 12:07] VITALS: BP 145/68; PULSE 71; RESP 16; O2SAT 96
--- NOTE | 2016-10-20 16:03 | PCM.PNMED ---
Subjective Date of Service Oct 20, 2016 Subjective Overnight: Patient was hypertensive overnight, and received metoprolol. No events overnight. Slept well on the Bipap Today: He reports having a bowel movement yesterday. He denies chest pain, shortness of breath, nausea, vomiting, diarrhea, fevers, or chills. Exam Vital Signs Vital Sign - Last Date Time Temp Pulse Resp B/P Pulse Ox O2 Delivery O2 Flow Rate FiO2 10/20/16 12:07 36.5 71 16 145/68 96 Nasal Cannula 4.00 10/19/16 20:18 40 Intake and Output 10/19/16 10/19/16 10/20/16 Cumulative From/Thru 15:00 23:00 07:00 10/14/16 20:11 - 10/20/16 06:45 Intake Total 1415 ml 219 ml 68045 ml Output Total 375 ml Balance 1415 ml 219 ml 68749 ml Intake Oral 400 ml 20 ml 1754 ml IV Total 1015 ml 199 ml 96019 ml Output Urine Total 275 ml Emesis 100 ml # Voids 3 1 30 # Bowel Movements 0 1 1 Exam General: Alert. No acute distress, well-developed, well-nourished. Mumbled and garbled speech. HEENT: Normocephalic, atraumatic. External ears without defect. Pupils equal, round, and reactive to light. Neck: Supple. No lymphadenopathy or thyromegaly. Cardiovascular: Distant heart sounds. Regular rate and rhythm with occasional ectopy. Soft systolic murmur. Pulmonary: Clear to auscultation bilaterally. No rales, wheezes, or rhonchi. Normal respiratory effort with no use of accessory muscles. Speaks in 5-10 word sentences. Abdomen: Bowel tones present. Soft, nontender, nondistended. Extremities: Left knee with erythema, warmth and swelling greatly improved compared to pen marking. Area of erythema is demarcated and limited to his a portion of his anterior left knee. Neurological: Cranial nerves grossly intact. Awake, alert. Lab and Diagnostics Result Diagram: 10/20/1641410/20/16414 X-Rays, CTs and MRIs PROCEDURE: X-RAY LEFT KNEE, THREE VIEWS Date of Service: 10/14/162019 IMPRESSION: Bipartite patella, no osteomyelitis or foreign body seen. Swelling in the soft tissues ventral to the patella but no gas in those soft tissues is found. Approved by: Pa Madrigal M.D. on 10/14/2016 at 21:13 PROCEDURE: X-RAY CHEST ONE VIEW, PORTABLE Date of Service: 10/16/16 0700 IMPRESSION: No acute cardiopulmonary disease. Transcribed by: ODILIA on 10/16/2016 at 9:55 12-lead ECG SR. 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 Today is hospital day 3. 1. Acute severe sepsis with source of infection left knee cellulitis, present on admission. Improving. - On 10/16/2016, at 08:36 patient's temperature was 39C and respiratory rate was 22. He has a active left knee cellulitis. Patient became hypotensive on and his creatinine increased to 1.33. He also had an episode of altered mental status with decreased responsiveness on 10/16/2016. Blood pressure is now stable - Patient received aggressive intravenous fluid resuscitation and did not need vasopressors. - Continue with antibiotics as below - Held blood pressure medications 2. Acute left knee cellulitis. Present on admission. Active -Erythema continues to decrease compared to pen line. It is limited to his left anterior knee.Knee x-ray shows swelling in the soft tissues ventral to the patella but no gas. Streptozyme normal. WBC normal. -Zosyn, vancomycin, Daptomycin discontinued. -Ancef IV q8. Dr. Thomason recommends that he could be transitioned to an oral cephalosporin such as Keflex or cefuroxime to complete at least a 10-day course of therapy. -Infectious disease consulted and following. His are time and recommendations are appreciated. 3. Acute hypoventilation and acute hypoxic exacerbation of chronic respiratory failure. Not present on admission. Improved. - Oxygen saturation at 84% while on CPAP at 14:49 on 10/16/2016 - Likely due to chronic respiratory failure from inadequate use of at home CPAP machine for chronic obstructive sleep apnea and from body habitus causing hypoventilation - Acute severe sepsis likely contributing to patient's acute exacerbation of respiratory failure - Previous ABG on CPAP showin.32, 57, 66, 28.6 -Patient oxygen saturation at 93% on 4 liters of oxygen by nasal cannula -Continue to monitor 4. Hypertension, chronic. Present on admission. Active -Held since patient had hypotension 3 days ago -Resumed patient's home metoprolol 25 mg twice per day yesterday, hold if heart rate <60 bpm -Resumed patient's home lisinopril 5 mg daily -Continue to monitor -Discontinued normal saline as patient is now eating and drinking and blood pressure is stable 5. Obstructive sleep apnea, chronic. Present on admission. Active -Has CPAP at home but hasn't used in about one month -Continue CPAP at night with new, better fitting mask 6. Type 2 diabetes mellitus, chronic. Present on admission. Active -No home antiglycemic agents -Hemoglobin A1c 7% -Monitor blood glucose levels -Medium correctional insulin scale started 7. Hypocalcemia. Acute. Not present on admission. Improved. -Patient's calcium 6.8 yesterday -He was given 1 gram IV calcium gluconate yesterday -Rechecked BMP and checked magnesium 2 hours after infusion complete -Calcium improved to 7.6, magnesium is 1.7. Calcium 7.7 today. -Continue to monitor 8. Coronary artery disease status post coronary artery bypass graft present on admission. Active -Continue home atorvastatin, clopidogrel, aspirin 9. Gastroesophageal esophageal reflux disease, chronic. Present on admission. -Continue home proton pump inhibitor 10. History of peripheral vascular accident -Continue aspirin, clopidogrel 11. Vesicular rash. Present on admission. Improved - VZV PCR negative 12. Class III obesity - Patient's BMI is 42.9 Acetaminophen for mild pain when necessary. Bowel regimen Senna and MiraLAX scheduled and PRN. Zofran when necessary for nausea and vomiting. Disposition: Patient likely to be discharged in the next 1-3 days to [facility] ([facility]) pending placement, continued stable blood pressure, and continued improvement of his left leg cellulitis to be treated with at least 10 days of antibiotics and of his respiratory failure. Pain Evaluation: Adequate Pain Control VTE Prophylaxis: Sub-Q Heparin (Unfractionated) Resuscitation Status: DNR/DNI:Do Not Resuscitate/Intubate Attending Statement The patient was seen and examined together with Dr. Garvey on 10/20/2016 and I agree with the history, exam and plan as outlined in the note above. . Lion Garvey Oct 20, 2016 16:02 Denny Kang MD Oct 21, 2016 04:47
[2016-10-20 16:46] VITALS: BP 152/69; PULSE 66; RESP 18; O2SAT 94
--- NOTE | 2016-10-20 18:42 | NUR ---
O2/left knee Pt on 3L nc most of the day, SpO2 mid to high 90s through the day, would drop to high 80s with activity. Left knee redness improving, decreasing from previous marked margin. Border was remarked this AM.
[2016-10-20 20:07] VITALS: BP 158/68; PULSE 68; PULSE 70; RESP 18; O2SAT 94; O2SAT 95
[2016-10-21] MEDS: CeFAZolin Inj 2 GM in Dextrose 5% 50 ML IV SCH ×2 (01:24→09:12)
[2016-10-21] MEDS: Heparin 5,000 Unit/mL Inj SUBQ SCH ×2 (01:25→09:24)
[2016-10-21 01:28] VITALS: BP 145/71; PULSE 55; RESP 20; O2SAT 96
--- NOTE | 2016-10-21 02:21 | NUR ---
Transfer Pt transferred to room 1003 at around 0200, report to Roxanne Rubin RN. Vitals checked and stable prior to transfer, O2 tank used during transfer. Pt chart, meds, belongings and visitor transferred w/ pt. IV fluid/ABO set up and checked by [facility] RN once she arrived in room. Pt appeared in no distress throughout transfer of care.
[2016-10-21 05:00] VITALS: BP 145/63; PULSE 75; RESP 19; O2SAT 88
[2016-10-21 05:54] LABS: BASOPHILS % (AUTO) 0.1 % (0-3); EOSINOPHILS % (AUTO) 3.9 % (0-5); MONOCYTES % (AUTO) 12.4 % (4-12); Mean Corpuscular Hemoglobin 29.1 pg (27.0-35.0); Mean Corpuscular Volume 92.9 fL (81-100); NEUTROPHILS % (AUTO) 61.6 % (40-74); Platelet Count 204 bil/L (150-400)
[2016-10-21] MEDS: Insulin LISPRO 300 Unit/3 mL Inj SUBQ SCH ×2 (08:00→12:00)
[2016-10-21] MEDS: Pantoprazole 40 mg ER24 Tablet PO SCH (09:15)
--- NOTE | 2016-10-21 10:00 | NUR ---
NUTRITION FOLLOW UP ASSESS: 85 YO male admitted with cellulitis in his left knee and erythema. Pt requiring BiPAP at night. Pt with good PO intake on Pureed diet. PMHX: Type II DM, CAD s/p CABG, MARIBELL, Hx of CVA w/ left lower extremity weakness, HTN, GERD, Appendectomy, Hernia repair LABS: Na 145, Cr 0.75, Glu 133, Alb 2.7 MEDS: Senna, Miralax. GI: 1 BM 10/20. DIET: Pureed, nectar thick liquids + supplements, heart healthy/consistent carb. PO intake 100%. CURRENT WT: 132.2 kg, BMI: 44.3 kg/m2, Admit wt: 120.7 kg (BMI: 40.8 kg/m2), ABW: 82.7 kg EST. NEEDS: BMI>40 Calories: 8169-3719 kcal/day (25-30 kcal/kg ABW) Protein: 100-125 g/day (1.2-1.5 g/kg ABW) Fluids: 0849-4208 ml (approx. 1 ml/kcal/day) NUTRITION DIAGNOSIS: 1) Chew/swallowing difficulties related to CVA induced weakness as evidenced by need for texture altered diet per [facility]. NUTRITION INTERVENTION: 1) Continue current diet and supplements as ordered. MONITOR/EVALUATE: PO intake, diet adv/jose alberto, labs, GI, nutrition status. Follow per moderate nutrition risk guidelines.
--- NOTE | 2016-10-21 10:53 | PCM.DIMED ---
Discharge Instructions Date of Service Oct 21, 2016 Dates of Hospitalization Oct 15, 2016 at 00:47 Discharge Diagnosis Discharge Diagnosis 1. Acute severe sepsis with source of infection left knee cellulitis, present on admission. Improving. 2. Acute left knee cellulitis. Present on admission. Active 3. Acute hypoventilation and acute hypoxic exacerbation of chronic respiratory failure. Not present on admission. Improved. OTHER CHRONIC PROBLEMS 4. Hypertension, chronic. Present on admission. Active 5. Obstructive sleep apnea, chronic. Present on admission. Active 6. Type 2 diabetes mellitus, chronic. Present on admission. Active 7. Hypocalcemia. Acute. Not present on admission. Improved. 8. Coronary artery disease status post coronary artery bypass graft present on admission. Active 9. Gastroesophageal esophageal reflux disease, chronic. Present on admission. 10. History of peripheral vascular disease 11. Class III obesity Diet Low fat, Low Sodium, Heart Healthy, Diabetic Activity Limited until seen by PCP, Other (continue physical therapy at assisted facility) Call your provider Fever or Chills, Shortness of breath, Bleeding, Chest pain, Vomitting, Excessive diarrhea, Weakness (unilateral) Patient Instructions You were hospitalized due to Left knee cellulitis. you have been treated with IV antibiotics. Please continue Keflex for 5 more days. You were also noted to have acute on chronic hypoxic and hypercapnic respiratory failure probably due to untreated obstructive sleep apnea/obesity hypoventilation. Please use CPAP during sleep. Follow-up plan Please follow-up with PCP in 1 week after discharge from assisted facility Follow-up Provider: Murali Bowen MD Follow-up with PCP in: 1 week Provider: Guilherme Young DO Follow-up in: 1 week Kings Stearns MD Oct 21, 2016 10:53
[2016-10-21] MEDS ORDERED: CEPH-512 PO (10:55)
--- NOTE | 2016-10-21 11:55 | NUR ---
Social Work-readiness for discharge: Data:EMR Reviewed. Pt is on day 6 of hospitalization for cellulitis per H&P. Pt may be medically stable later today or tomorrow. ABBY followed up with Love from [facility] who states they do not currently have a Speech therapist on staff so they cannot accept the pt. ABBY followed up with pt, Joan and technical service engineer to discuss discharge planning, SW role explained. ABBY explained how [facility] is not able to accept pt and alterative SNF would need to be explore, SNF choice list provided. Pt and agreeable to referral to [facility]. SW faxed [facility] and Facesheet and provided access. SW called Edita and informed her of referral. Paperwork in the chart. SW will continue to follow. Assessment:Pt who would benefit from SNF. Plan:[facility]. Paperwork in the chart. SW will continue to follow. LIVIA Garrido
--- NOTE | 2016-10-21 12:33 | NUR ---
Social Work-initial assessment: Data:See initial assessment. PT is a 85 y/o male who was admitted on 10/15/16 for cellulitis per H&P. Pt's insurance is [employer] and PCP is Murali Boewn MD. EMR reviewed. Pt is alert and oriented x3. Pt resides at home with his Joan( who is Persian speaking) where he remains independent with basic ADls. Pt uses a fww at baseline and a CPAP. pt has no HH or SNF history. PT has no long-term care insurance or VA benefits. SW discussed DPOA/advanced which are on file and placed in folder. PT continues to recommend SNF, pt and agreeable. Referral made to [facility].Phone number and plan on white board in room. Paperwork in the chart. SW will continue to follow. Assessment:Pt who would benefit from SNF. Plan:[facility]. Paperwork in the chart. SW will continue to follow. LIVIA Garrido Addendum: 10/21/16 at 1237 by RAYSA STEWARD Amended: Links added.
--- NOTE | 2016-10-21 12:37 | NUR ---
[facility] can accept with Dr. eKrn to follow. LIVIA Garrido
--- NOTE | 2016-10-21 12:47 | NUR ---
Social Work-Discharge Data: EMR reviewed. Pt is on day 6 of hospitalization for cellulitis per H&P. Pt is medically stable to discharge today. PT continues to recommend SNF placement. [facility] was first choice of pt, but was unable to accept pt since they do not have Speech Therapy. ABBY spoke with pt and Joan to update them of this. SNF choice list provided. Pt and chose [facility] as second choice. ABBY spoke with Edita, admissions at [facility] [phone], who is agreeable to accepting pt today. Edita arranged transportation via cabulance at 1500. UR specialist created packet, ABBY faxed orders. ABBY updated pt and at bedside with transition specialist and called to inform daughter, Gwen, of discharge. RN, UC, pt/family and [facility] all updated and agreeable to plan. Assessment: Pt who would benefit from SNF. Plan: Pt to discharge to [facility] today via cabulance at 1500. RN, UC, pt/family and [facility] all updated and agreeable to plan. Odalys Dao MANAGER SECURITY AND SAFETY
--- NOTE | 2016-10-21 13:19 | PCM.DC.MED ---
Discharge Summary Date of Service Oct 21, 2016 Dates of Hospitalization Date of Hospital Admission Oct 15, 2016 at 00:47 Date of Discharge: Oct 21, 2016 Providers: Admitting Physician: Margarita Cueto DO Primary Care Physician: Murali Bowen MD Attending Physician: Margarita Cueto DO Diagnosis at Time of Discharge Diagnosis at Time of Discharge 1. Acute severe sepsis with source of infection left knee cellulitis, present on admission. Improving. 2. Acute left knee cellulitis. Present on admission. Active 3. Acute hypoventilation and acute hypoxic exacerbation of chronic respiratory failure. Not present on admission. Improved. OTHER CHRONIC PROBLEMS 4. Hypertension, chronic. Present on admission. Active 5. Obstructive sleep apnea, chronic. Present on admission. Active 6. Type 2 diabetes mellitus, chronic. Present on admission. Active 7. Hypocalcemia. Acute. Not present on admission. Improved. 8. Coronary artery disease status post coronary artery bypass graft present on admission. Active 9. Gastroesophageal esophageal reflux disease, chronic. Present on admission. 10. History of peripheral vascular disease 11. Class III obesity Consultations ID Dr Thomason Procedures XRay, CTs & MRIs PROCEDURE: X-RAY LEFT KNEE, THREE VIEWS Date of Service: 10/14/16 2020 IMPRESSION: Bipartite patella, no osteomyelitis or foreign body seen. Swelling in the soft tissues ventral to the patella but no gas in those soft tissues is found. Approved by: Pa Madrigal M.D. on 10/14/2016 at 21:13 PROCEDURE: X-RAY CHEST ONE VIEW, PORTABLE Date of Service: 10/16/16 0700 IMPRESSION: No acute cardiopulmonary disease. Transcribed by: ODILIA on 10/16/2016 at 9:55 ECG [address] elevation / depression Brief History as per HPI performed by Dr Cueto on 10/15/16 Patient is an 85-year-old male with type 2 diabetes mellitus, CAD s/p CABG, prior CVA with residual left lower extremity weakness presenting with left lower extremity swelling and erythema. The patient is a vague historian. He is accompanied by his family at bedside at time of visit. The patient reports initially noticing a small "split skin" on his left about 2 weeks ago. Patient does not recall any precipitating event or trauma to his knee. There was no associated drainage or bleeding from the site and he states the knee subsequently became more swollen and red but he refused medical care. Today (10/14) the patient noticed his knee was more red, swollen and warm. Patient's eventually convinced him to go to the ED for further evaluation. At time of visit, the patient reports his pain is one out of 10 on the pain scale. Patient denies fever, chills, nausea, emesis, chest pain, shortness of breath. In the ED, vitals: temp 37.8, HR 70, RR 18 - satting 92% on room air, BP 110/ 61. Notable labs: lactic acid 2.4 Hospital Course Patient is an 85-year-old male with type 2 diabetes mellitus, coronary artery disease status post CABG, prior cerebrovascular accident with residual left lower extremity weakness presenting with left lower extremity swelling and erythema. Today is hospital day 3. 1. Acute severe sepsis with source of infection left knee cellulitis, present on admission. Improving. - On 10/16/2016, at 08:36 patient's temperature was 39C and respiratory rate was 22. He has a active left knee cellulitis. Patient became hypotensive on and his creatinine increased to 1.33. He also had an episode of altered mental status with decreased responsiveness on 10/16/2016. Blood pressure is now stable - Patient received aggressive intravenous fluid resuscitation and did not need vasopressors. - Continue with antibiotics . Continue Keflex 500 mg 3 times a day for 5 more days - initially Held blood pressure medications, resumed on discharge 2. Acute left knee cellulitis. Present on admission. Active -Erythema continues to decrease compared to pen line. It is limited to his left anterior knee.Knee x-ray shows swelling in the soft tissues ventral to the patella but no gas. Streptozyme normal. WBC normal. -Zosyn, vancomycin, Daptomycin discontinued. -Treated with Ancef IV q8. continue Keflex for 5 more days to complete 10- day course of therapy. -Infectious disease consulted 3. Acute hypoventilation and acute hypoxic exacerbation of chronic respiratory failure. Not present on admission. Improved. - Oxygen saturation at 84% while on CPAP at 14:49 on 10/16/2016 - Likely due to chronic respiratory failure from inadequate use of at home CPAP machine for chronic obstructive sleep apnea and from body habitus causing hypoventilation. Patient needs to use CPAP at night - Acute severe sepsis likely contributing to patient's acute exacerbation of respiratory failure - Previous ABG on CPAP showin.32, 57, 66, 28.6 -Patient oxygen saturation at 93% on 4 liters of oxygen by nasal cannula -Continue to monitor 4. Hypertension, chronic. Present on admission. Active -Held since patient had hypotension 3 days ago -Resumed patient's home metoprolol 25 mg twice per day yesterday, hold if heart rate <60 bpm -Resumed patient's home lisinopril 5 mg daily -Continue to monitor 5. Obstructive sleep apnea, chronic. Present on admission. Active -Has CPAP at home but hasn't used in about one month -Continue CPAP at night with new, better fitting mask 6. Type 2 diabetes mellitus, chronic. Present on admission. Active -No home antiglycemic agents -Hemoglobin A1c 7% -Monitor blood glucose levels 7. Hypocalcemia. Acute. Not present on admission. Resolved -had low calcium 6.8 -He was given 1 gram IV calcium gluconate . Resolved 8. Coronary artery disease status post coronary artery bypass graft present on admission. Active -Continue home atorvastatin, clopidogrel, aspirin 9. Gastroesophageal esophageal reflux disease, chronic. Present on admission. -Continue home proton pump inhibitor 10. History of peripheral vascular accident -Continue aspirin, clopidogrel 11. Vesicular rash. Present on admission. Improved - VZV PCR negative 12. Class III obesity - Patient's BMI is 42.9 Acetaminophen for mild pain when necessary. Bowel regimen Senna and MiraLAX scheduled and PRN. Zofran when necessary for nausea and vomiting. Disposition: To [facility] Dr Kern to follow Exam Vital Signs (Last) Date Time Temp Pulse Resp B/P Pulse Ox O2 Delivery O2 Flow Rate FiO2 10/21/16 08:40 Supplement Oxygen CPAP/BIPAP 10/21/16 05:00 36.9 75 19 145/63 88 10/21/16 01:28 3.00 10/19/16 20:18 40 Exam General: Alert. No acute distress, well-developed, well-nourished. Mumbled and garbled speech. HEENT: Normocephalic, atraumatic. External ears without defect. Pupils equal, round, and reactive to light. Neck: Supple. No lymphadenopathy or thyromegaly. Cardiovascular: Distant heart sounds. Regular rate and rhythm with occasional ectopy. Soft systolic murmur. Pulmonary: Clear to auscultation bilaterally. No rales, wheezes, or rhonchi. Normal respiratory effort with no use of accessory muscles. Speaks in 5-10 word sentences. Abdomen: Bowel tones present. Soft, nontender, nondistended. Extremities: Left knee with erythema, warmth and swelling greatly improved compared to pen marking. Area of erythema is demarcated and limited to his a portion of his anterior left knee. Neurological: Cranial nerves grossly intact. Awake, alert. Test 10/15/16 02:15 10/16/16 00:16 10/16/16 02:00 10/16/16 15:10 Hemoglobin A1c 7.0% (4.8-5.6) Troponin T 0.010ug/L (0.0-0.011) Streptozyme 48.6IU/mL (0.0-200.0) Varicella-Zoster Virus DNA (PCR) see comment Hold Merino Top Tube Received (Received) Urine Color Yellow (YELLOW) Urine Appearance Clear (CLEAR,HAZY) Urine pH 5.5 (5.0-8.0) Urine Specific [place] 1.025 (1.003-1.035) Urine Protein Negativemg/dL (NEG,TRACE) Urine Glucose (UA) Negativemg/dL (NEGATIVE) Urine Ketones Negativemg/dL (NEGATIVE) Urine Occult Blood Trace (NEGATIVE) Urine Nitrite Negative (NEGATIVE) Urine Bilirubin Negative (NEGATIVE) Urine Urobilinogen Normalmg/dL (NORMAL) Urine Leukocyte Esterase Negative (NEGATIVE) Urine RBC 0-2/hpf (0-2) Urine WBC 0-5/hpf (0-5) Urine Epithelial Cells Moderate/hpf (NONE-MOD) Urine Crystals None seen (NONE SEEN) Urine Bacteria Few/hpf (NONE-FEW) Urine Hyaline Casts None/lpf (NONE) Urine Granular Casts None seen (NONE SEEN) Urine Waxy Casts None seen (NONE SEEN) Urine Red Blood Cell Casts None seen (NONE SEEN) Urine White Blood Cell Casts None seen (NONE SEEN) Urine Mucus Present (None Seen) Urine Trichomonas None seen (NONE SEEN) Urine Yeast None (NONE SEEN) Urinalysis Comment None Urine Culture Reflexed Not indicated Hold Purple Top Tube Received (Received) Hold Blue Top Tube Received (Received) Hold Thurmond Top Tube Received (Received) Test 10/17/16 14:03 10/18/16 13:30 10/20/16 04:15 10/21/16 03:40 Vancomycin Level Trough 3.5mcg/mL Magnesium Level 1.7mg/dL (1.6-2.6) Lactic Acid Level 0.7mmol/L (0.4-2.0) Procalcitonin 0.13ng/mL (0.00-0.08) White Blood Count 7.5th/mm3 (3.8-10.1) Red Blood Count 3.51mil/mm3 (4.40-5.80) Hemoglobin 10.2g/dL (13.8-17.2) Hematocrit 32.6% (41.0-50.0) Mean Corpuscular Volume 92.9fL (81-100) Mean Corpuscular Hemoglobin 29.1pg (27.0-35.0) Mean Corpuscular Hemoglobin Concent 31.3% (32.0-37.0) Red Cell Distribution Width 13.6% (12.3-15.4) Platelet Count 204bil/L (150-400) Neutrophils (%) (Auto) 61.6% (40-74) Lymphocytes (%) (Auto) 21.9% (14-46) Monocytes (%) (Auto) 12.4% (4-12) Eosinophils (%) (Auto) 3.9% (0-5) Basophils (%) (Auto) 0.1% (0-3) Sodium Level 145mEq/L (134-144) Potassium Level 4.0mEq/L (3.5-5.2) Chloride Level 107mEq/L (97-108) Carbon Dioxide Level 30mmol/L (18-29) Blood Urea Nitrogen 15mg/dL (8-27) Creatinine 0.75mg/dL (0.76-1.27) Estimat Glomerular Filtration Rate 105mL/min (>59) Glucose Level 133mg/dL (60-99) Calcium Level 8.0mg/dL (8.5-10.1) Total Bilirubin 0.2mg/dL (0.0-1.2) Aspartate Amino Transf (AST/SGOT) 22U/L (0-50) Alanine Aminotransferase (ALT/SGPT) 16U/L (0-44) Alkaline Phosphatase 55U/L (25-160) Total Protein 5.1g/dL (6.4-8.4) Albumin 2.7g/dL (3.4-5.0) Discharge Medications Discharge Medications ([Metoprolol Tartrate]) 25 MG TABLET 25 MG PO BID Prescribed by: BRAD LIMA DO ([Isosorbide Mononitrate]) 30 MG TABLET.ER 30 MG PO DAILY Prescribed by: BRAD LIMA DO Aspirin (Aspirin) 81 Mg Tablet.dr 81 MG PO DAILY (Reported) Atorvastatin (Lipitor) 40 Mg Tablet 80 MG PO DAILY (Reported) Cephalexin (Keflex) 500 Mg Capsule 500 MG PO TID Prescribed by: MICKEY RUCKER MD Clopidogrel Bisulfate (Plavix) 75 Mg Tablet 75 MG PO DAILY Prescribed by: BRAD LIMA DO Fluoxetine (Fluoxetine) 10 Mg Capsule 10 MG PO DAILY (Reported) Furosemide (Furosemide) 40 Mg Tablet 40 MG PO DAILY (Reported) Lisinopril (Lisinopril) 5 Mg Tablet 5 MG PO DAILY (Reported) Omeprazole (Omeprazole) 20 Mg Capsule.dr 20 MG PO DAILY (Reported) Potassium Chloride (Potassium Chloride) 10 Meq Capsule.er 10 MEQ PO DAILY ( Reported) TAKE WITH FOOD Followup Plan Dis[facility]: [facility] Follow-up plan Please follow-up with PCP in 1 week after discharge from [facility] facility Discharge Diet: Low fat, Low Sodium, Heart Healthy, Diabetic Discharge Activity: Limited until seen by PCP, Other (continue physical therapy at [facility] facility) Patient Instructions You were hospitalized due to Left knee cellulitis. you have been treated with IV antibiotics. Please continue Keflex for 5 more days. You were also noted to have acute on chronic hypoxic and hypercapnic respiratory failure probably due to untreated obstructive sleep apnea/obesity hypoventilation. Please use CPAP during sleep. Follow-up Provider: Murali Bowen MD Follow-up with PCP in: 1 week Provider: Racquel Kern MD Follow-up in: 1 week Time spent 40 minutes coordinating discharge copies to: Murali Bowen MD; Racquel Kern MD, Melaku MD Oct 21, 2016 13:19
--- NOTE | 2016-10-21 15:12 | NUR ---
Discharge patient discharged to [facility] via cabulance at 1500hrs. report called to [facility], they are expecting patient's arrival.
== END 2016-10-21 15:00 | DRG 871 ==
LOC: SED 20:04 → PCC 10-15 00:47 → MPC 10-15 02:23 → CCU 10-16 16:24 → PCC 10-17 11:30 → OSC 10-21 02:31
PROVIDERS: ADMIT Internal Medicine; ATTEND Internal Medicine
PROC: 4A033R1 Measurement of Arterial Saturation, Peripheral, Percutaneous Approach (ICD-10-PCS; principal; 2016-10-16)
DX: A41.9 Sepsis, unspecified organism (principal); J96.21 Acute and chronic respiratory failure with hypoxia; L03.116 Cellulitis of left lower limb; Z68.41 Body mass index [BMI] 40.0-44.9, adult; I69.354 Hemiplegia and hemiparesis following cerebral infarction affecting left non-dominant side; N17.9 Acute kidney failure, unspecified; R23.8 Other skin changes; I25.10 Atherosclerotic heart disease of native coronary artery without angina pectoris; Z95.1 Presence of aortocoronary bypass graft; E11.9 Type 2 diabetes mellitus without complications; G47.33 Obstructive sleep apnea (adult) (pediatric); I10 Essential (primary) hypertension; K21.9 Gastro-esophageal reflux disease without esophagitis; Z66 Do not resuscitate; E83.51 Hypocalcemia; E66.01 Morbid (severe) obesity due to excess calories

== ENCOUNTER 2017-03-03 08:54 | Emergency (ER) | payer MEDICARE ==
[~2017-03-03] VITALS: Ht 177.8 cm; Wt 113.6 kg
[~2017-03-03 08:54] MED LIST changes: +CEPH-512 PO; +FLUO10CA20 PO; -OMEP-113 PO; +OMEP20CA11 PO; -[UNRECOGNIZED DRUG - CODE] IV
[2017-03-03 09:04] VITALS: BP 122/72; PULSE 63; RESP 16; O2SAT 93
--- NOTE | 2017-03-03 10:02 | ED.REPORT ---
HPI-General Illness Date of Service Mar 03, 2017 ED Provider: Alla Luke MD Patient is an 86 year old male with a hx of HTN, CHF, prostate cancer, and CVA on Aspirin and Plavix who presents to the ED complaining of a sore on his rectum onset a few days ago. Associated symptoms include diarrhea onset 5 days ago and melena onset 4 days ago. Per , he has bleeding "when he stands up from the toilet". Patient reports seeing a "worm" in his feces. He denies vomiting, abdominal pain, fevers, or any other symptoms. He has been taking Loperamide since the day before yesterday and hydrocortisone cream for the sore on his rectum. Patient and are difficult historians. Nursing Notes Stated Complaint: BUTTOCK PAIN Chief Complaint: General Complaint Nursing Notes Reviewed: Yes Allergies: Coded Allergies: No Known Allergies (Verified , 03/03/17) Scheduled ([Metoprolol Tartrate]) 25 MG TABLET 25 MG PO BID ([Isosorbide Mononitrate]) 30 MG TABLET.ER 30 MG PO DAILY Aspirin (Aspirin) 81 Mg Tablet.dr 81 MG PO DAILY Atorvastatin (Lipitor) 40 Mg Tablet 80 MG PO DAILY Cephalexin (Keflex) 500 Mg Capsule 500 MG PO TID Clopidogrel Bisulfate (Plavix) 75 Mg Tablet 75 MG PO DAILY Fluoxetine (Fluoxetine) 10 Mg Capsule 10 MG PO DAILY Furosemide (Furosemide) 40 Mg Tablet 40 MG PO DAILY Lisinopril (Lisinopril) 5 Mg Tablet 5 MG PO DAILY Omeprazole (Omeprazole) 20 Mg Capsule.dr 20 MG PO DAILY Potassium Chloride (Potassium Chloride) 10 Meq Capsule.er 10 MEQ PO DAILY TAKE WITH FOOD General Time Seen by MD: 10:01 Chief Complaint Other (Sore on rectum ) Hx Obtained From: Patient, Spouse, Logistic Manager Arrived By: Walk-in Sudden in Onset?: Yes Past Medical History Past Medical History Coronary artery disease with prior NSTEMI and CABG Asthma prostate cancer possible CHF GERD CA Reports: Diabetes mellitus, Hyperlipidemia, Hypertension, Stroke Past Surgical History hernia repair prostectomy CABG Reports: Appendectomy Smoking History Never Smoker Social History Alcohol Use: Denies alcohol use Drug Use: Denies drug use Other Social History: Good social support, , Local resident Ambulatory Status Walker Review of Systems +sore on rectum w/ bleeding Full Review of Systems Constitutional: Denies: Fever GI: Reports: Diarrhea, Melena, Denies: Abdominal pain, Vomiting Complete sys rev & neg: except as marked. Physical Exam Vital Signs Vital Signs Date Time Temp Pulse Resp B/P Pulse Ox O2 Delivery O2 Flow Rate FiO2 03/03/17 09:04 36.9 63 16 122/72 93 Room Air Initial VS: Reviewed, Vital signs normal Head / Eyes: Atraumatic, Normocephalic Neck: Full range of motion Respiratory: No respiratory distress Cardiovascular: Intact distal pulses Abdomen / GI: Soft, Non-tender Neurologic: Alert, Oriented, Nonfocal Psychiatric: Mood/affect normal, Behavior normal, Normal thought content General/Constitutional: Awake, Alert, Cooperative Skin: Warm, Dry excoriation on upper, outer butt cheek, L>R Re-Eval/Medical Decision Med Decision/Clinical Course Patient presented with 2-3 days of diarrhea this is since resolved. He was using Pepto-Bismol and his has noted black stool is result of this. Some excoriation over the buttocks. They have been using one percent hydrocortisone on this and bag balm. Suggested they stop the hydrocortisone switched to Desitin for more of a barrier protection and once it healed he can switch back to back balm. Time of Eval: 10:51 Re-Evaluation/Progress Note: Discussed plan for discharge. Patient understands and agrees with plan. All questions addressed at this time. Counseled Regarding: Diagnosis, Need for follow-up, When/why to return to ED Discharge & Departure Primary Impression: Diarrhea Diarrhea type: unspecified type Qualified Code: R19.7 - Diarrhea, unspecified Additional Impression: Excoriation of buttock Encounter type: initial encounter Qualified Code: S30.810A - Abrasion of lower back and pelvis, initial encounter Disposition: Home Discharge Condition All VS Reviewed: Yes Condition: Improved Keep the area very clean. Dry completely after showering. slather LOTS of DESITIN on the area to protect the skin for more moisture. Any time you have a BM or there is moisture in the brief, you need to change the brief. You need to be up and moving as much as possible to avoid just sitting on the area. Happy Healing! Referrals: Murali Bowen MD (PCP) Scribe Attestation Portions of this note were transcribed by Yaima Chavez. IDr. Luke personally performed the history, physical exam and medical decision-making; I reviewed and confirmed the accuracy of the information in the transcribed note. Signed by: Yaima Chavez 03/03/17, 1117 copies to: Murali Bowen MD, Shawna L MD Mar 03, 2017 10:02 YAIMA CHAVEZ Mar 03, 2017 10:44
[2017-03-03 11:33] VITALS: BP 148/71; PULSE 71; RESP 22; O2SAT 97
== END 2017-03-03 11:33 | disposition home or self-care (01) ==
LOC: SED 08:54
DX: S30.810A Abrasion of lower back and pelvis, initial encounter (principal); X58.XXXA Exposure to other specified factors, initial encounter; Y93.89 Activity, other specified; Y92.89 Other specified places as the place of occurrence of the external cause; Y99.8 Other external cause status; R19.7 Diarrhea, unspecified; I11.0 Hypertensive heart disease with heart failure; I50.9 Heart failure, unspecified; I25.10 Atherosclerotic heart disease of native coronary artery without angina pectoris; I25.2 Old myocardial infarction; E11.9 Type 2 diabetes mellitus without complications; E78.5 Hyperlipidemia, unspecified; J45.909 Unspecified asthma, uncomplicated; K21.9 Gastro-esophageal reflux disease without esophagitis; Z86.73 Personal history of transient ischemic attack (TIA), and cerebral infarction without residual deficits; Z95.1 Presence of aortocoronary bypass graft; Z79.82 Long term (current) use of aspirin